=== PATIENT | female | born 1935 | race American Indian/Alaskan Native ===

== ENCOUNTER 2016-06-28 08:42 | Inpatient (IN) | payer MEDICARE ==
[2016-06-28 09:18] LABS: Basophils % (Auto) 0.9 % (0.0-1.8); Eosinophils % (Auto) 1.1 % (0.0-4.3); Hematocrit 31.5 % (30.3-42.9); Hemoglobin 10.2 gm/dl (10.1-14.3); Mean Corpuscular HGB Conc 32 % (30-34); Mean Corpuscular Hemoglobin 30 pg (28-32); Mean Corpuscular Volume 92 fl (79-97); Platelet Count 164 K/mm3 (140-440); Red Blood Count 3.42 M/mm3 (3.65-5.03); Red Cell Distribution Width 16.2 % (13.2-15.2); White Blood Count 6.6 K/mm3 (4.5-11.0)
--- NOTE | 2016-06-28 09:57 | XRay Report ---
AP CHEST: HISTORY: Shortness of breath. FINDINGS: Mild cardiomegaly, mild pulmonary venous congestion and small bilateral pleural effusions are identified. These findings have increased slightly since 11/14/15. IMPRESSION: Mild CHF.
[2016-06-28 10:10] LABS: Anion Gap 22 mmol/L; Blood Urea Nitrogen 15 mg/dL (7-17); Calcium 8.4 mg/dL (8.4-10.2); Carbon Dioxide 23 mmol/L (22-30); Chloride 103.4 mmol/L (98-107); Glucose 201 mg/dL (65-100); Sodium 144 mmol/L (137-145)
[2016-06-28 10:36] LABS: INR 1.46 (0.87-1.13); Partial Thromboplastin Time 25.2 Sec. (24.2-36.6)
[2016-06-28 10:40] LABS: Creatine Kinase MB 1.6 ng/mL (0.0-4.0)
[2016-06-28 10:48] LABS: Alanine Aminotransferase 11 units/L (7-56); Albumin 3.3 g/dL (3.9-5); Alkaline Phosphatase 95 units/L (35-129); Bilirubin,Total 0.6 mg/dL (0.1-1.2); Magnesium 1.7 mg/dL (1.7-2.3); Total Protein 6.6 g/dL (6.3-8.2)
[2016-06-28 10:52] LABS: Bilirubin,Direct < 0.2 mg/dL (0-0.2)
[2016-06-28] MEDS ORDERED: BABY ASPIRIN PO ONE (11:40)
--- NOTE | 2016-06-28 11:40 | Emergency Department Report ---
ED Shortness of Breath HPI - General Chief Complaint: Dyspnea/Respdistress Stated Complaint: SOB Time Seen by Provider: 06/28/16 09:44 Source: patient, family Mode of arrival: Wheelchair Limitations: No Limitations - History of Present Illness Initial Comments: The patient complains of generalized weakness and shortness of breath. She stated this her weight is up 299 pounds. She is a little bit unclear as to what her dry weight is. She states that she has developed increasing edema of her lower extremities. She has a history of congestive heart failure. However I do not find any history of atrial fibrillation or flutter. She is not on an anti-coagulant. [facility] She is not aware of an irregular heartbeat. She denies chest pain pressure or tightness. MD Complaint: shortness of breath -: Gradual, days(s) Consistency: intermittent Improves With: nothing Worsens With: nothing Known History Of: congestive heart failure Context: other (appears to have new onset atrial flutter) Associated Symptoms: rash (lower extremity swelling and dyspnea) - Related Data Home Medications Medication Instructions Recorded Confirmed Last Taken Lisinopril/Hydrochlorothiazide 1 tab PO QDAY 11/14/15 06/28/16 06/27/16 [Zestoretic 20-12.5 mg] Lovastatin [Altoprev] 40 mg PO QPM 11/14/15 06/28/16 06/27/16 Epoetin Geovanni 40,000 Unit [Procrit] 1 ml IM O 06/28/16 06/28/16 Unknown Previous Rx's Medication Instructions Recorded Last Taken Type Aspirin [Aspirin TAB] 325 mg PO QDAY #30 tablet 11/16/15 06/27/16 Rx Carvedilol [Coreg] 3.125 mg PO BID #60 tablet 11/16/15 Unknown Rx Furosemide [Lasix] 20 mg PO QDAY #30 tablet 11/16/15 06/27/16 Rx Pantoprazole [Protonix TAB] 40 mg PO QDAY #30 tablet 11/16/15 06/27/16 Rx glipiZIDE [Glucotrol] 10 mg PO QDAY #30 tablet 11/16/15 1 Day Ago Rx Allergies Allergy/AdvReac Type Severity Reaction Status Date / Time No Known Allergies Allergy Verified 11/14/15 08:41 ED Review of Systems ROS: Stated complaint: SOB Other details as noted in HPI Constitutional: weakness. denies: chills, fever Eyes: denies: eye pain, eye discharge, vision change ENT: denies: ear pain, throat pain Respiratory: cough (some nonproductive cough), shortness of breath. denies: wheezing Cardiovascular: denies: chest pain, palpitations Endocrine: no symptoms reported Gastrointestinal: denies: abdominal pain, nausea, diarrhea Genitourinary: denies: urgency, dysuria, discharge Musculoskeletal: other. denies: back pain, joint swelling, arthralgia Skin: denies: rash, lesions Neurological: denies: headache, weakness, paresthesias Psychiatric: denies: anxiety, depression Hematological/Lymphatic: denies: easy bleeding, easy bruising ED Past Medical Hx - Past Medical History Previous Medical History?: Yes Hx Hypertension: Yes Hx Congestive Heart Failure: Yes Hx Diabetes: Yes Hx HIV: No - Surgical History Past Surgical History?: No - Social History Smoking Status: Never Smoker Substance Use Type: None - Medications Home Medications: Home Medications Medication Instructions Recorded Confirmed Last Taken Type Lisinopril/Hydrochlorothiazide 1 tab PO QDAY 11/14/15 06/28/16 06/27/16 History [Zestoretic 20-12.5 mg] Lovastatin [Altoprev] 40 mg PO QPM 11/14/15 06/28/16 06/27/16 History Aspirin [Aspirin TAB] 325 mg PO QDAY #30 tablet 11/16/15 06/28/16 06/27/16 Rx Carvedilol [Coreg] 3.125 mg PO BID #60 tablet 11/16/15 06/28/16 Unknown Rx Furosemide [Lasix] 20 mg PO QDAY #30 tablet 11/16/15 06/28/16 06/27/16 Rx Pantoprazole [Protonix TAB] 40 mg PO QDAY #30 tablet 11/16/15 06/28/16 06/27/16 Rx glipiZIDE [Glucotrol] 10 mg PO QDAY #30 tablet 11/16/15 06/28/16 1 Day Ago Rx Epoetin Geovanni 40,000 Unit [Procrit] 1 ml IM O 06/28/16 06/28/16 Unknown History ED Physical Exam - General Limitations: No Limitations General appearance: alert, in no apparent distress - Head Head exam: Present: atraumatic, normocephalic - Eye Eye exam: Present: normal appearance. Absent: scleral icterus - ENT ENT exam: Present: mucous membranes moist - Neck Neck exam: Present: normal inspection. Absent: tenderness, meningismus - Respiratory Respiratory exam: Present: decreased breath sounds (distant breath sounds at the base). Absent: respiratory distress, accessory muscle use - Cardiovascular Cardiovascular Exam: Present: regular rate, normal rhythm. Absent: systolic murmur, diastolic murmur, rubs, gallop - GI/Abdominal GI/Abdominal exam: Present: soft, normal bowel sounds. Absent: distended, tenderness, guarding, rebound, rigid, organomegaly, mass - Extremities Exam Extremities exam: Present: other (2+ bilateral edema) - Back Exam Back exam: Present: normal inspection - Neurological Exam Neurological exam: Present: alert, oriented X3, CN II-XII intact. Absent: motor sensory deficit - Psychiatric Psychiatric exam: Present: normal affect, normal mood - Skin Skin exam: Present: warm, dry, intact, normal color. Absent: rash ED Course Vital Signs 06/28/16 06/28/16 06/28/16 08:45 08:49 09:21 Temperature 98 F 98.9 F Pulse Rate 96 H 89 Respiratory 22 16 Rate Blood Pressure 133/73 Blood Pressure 128/74 [Left] O2 Sat by Pulse 99 100 92 Oximetry 06/28/16 06/28/16 06/28/16 09:30 09:45 10:01 Temperature Pulse Rate 93 H 73 Respiratory 18 18 20 Rate Blood Pressure 127/82 134/70 Blood Pressure [Left] O2 Sat by Pulse 96 Oximetry - Reevaluation(s) Reevaluation #1: The patient did not require rate control. She is given aspirin. She was given a prophylactic dose of subcutaneous Lovenox. She was given Lasix. Discussed the case with Dr. Browne who is a hospitalist that we'll be admitting her. [facility]. 06/28/16 11:56 ED Medical Decision Making - Lab Data Result diagrams: 06/28/16 09:05 06/28/16 09:05 Laboratory Results - last 24 hr 06/28/16 06/28/16 06/28/16 09:05 09:05 10:00 WBC 6.6 RBC 3.42 L Hgb 10.2 Hct 31.5 MCV 92 MCH 30 MCHC 32 RDW 16.2 H Plt Count 164 Lymph % (Auto) 34.7 [place] % (Auto) 9.6 H Eos % (Auto) 1.1 Baso % (Auto) 0.9 Lymph # 2.3 [place] # 0.6 Eos # 0.1 Baso # 0.1 Seg Neutrophils % 53.7 Seg Neutrophils # 3.5 PT 17.7 H INR 1.46 H APTT 25.2 Sodium 144 Potassium 4.0 Chloride 103.4 Carbon Dioxide 23 Anion Gap 22 BUN 15 Creatinine 1.0 Estimated GFR > 60 BUN/Creatinine Ratio 15.00 Glucose 201 H Calcium 8.4 Magnesium Total Bilirubin Direct Bilirubin AST ALT Alkaline Phosphatase Total Creatine Kinase CK-MB (CK-2) CK-MB (CK-2) Rel Index Troponin T < 0.010 NT-Pro-B Natriuret Pep Total Protein Albumin Albumin/Globulin Ratio TSH Free T4 06/28/16 06/28/16 06/28/16 10:01 10:01 10:01 WBC RBC Hgb Hct MCV MCH MCHC RDW Plt Count Lymph % (Auto) [place] % (Auto) Eos % (Auto) Baso % (Auto) Lymph # [place] # Eos # Baso # Seg Neutrophils % Seg Neutrophils # PT INR APTT Sodium Potassium Chloride Carbon Dioxide Anion Gap BUN Creatinine Estimated GFR BUN/Creatinine Ratio Glucose Calcium Magnesium 1.7 Total Bilirubin 0.6 Direct Bilirubin < 0.2 AST 19 ALT 11 Alkaline Phosphatase 95 Total Creatine Kinase 52 CK-MB (CK-2) 1.6 CK-MB (CK-2) Rel Index 3.0 Troponin T NT-Pro-B Natriuret Pep 3037 H Total Protein 6.6 Albumin 3.3 L Albumin/Globulin Ratio 1.0 TSH 1.960 Free T4 1.10 - EKG Data -: EKG Interpreted by Me Rate: normal - EKG Data Interpretation: other (atrial flutter with variable block. Left axis deviation. Intraventricular conduction delay. Nonspecific ST-T wave changes.) - Radiology Data Radiology results: report reviewed interpreted by me: Asked x-ray consistent with CHF cardiomegaly, venous congestion, pleural effusions. Critical care attestation.: If time is entered above; I have spent that time in minutes in the direct care of this critically ill patient, excluding procedure time. ED Disposition Clinical Impression: Atrial flutter Qualifiers: Atrial flutter type: unspecified Qualified Code(s): I48.92 - Unspecified atrial flutter Congestive heart failure (CHF) Qualifiers: Congestive heart failure type: combined Congestive heart failure chronicity: acute on chronic Qualified Code(s): I50.43 - Acute on chronic combined systolic (congestive) and diastolic (congestive) heart failure Type 2 diabetes mellitus Qualifiers: Diabetes mellitus complication status: with other specified complication Diabetes mellitus ad terminal makeup operator insulin use: without longterm use Qualified Code(s) : E11.69 - Type 2 diabetes mellitus with other specified complication Disposition: OP ADMITTED IP TO THIS HOSP Is pt being admited?: Yes Does the pt Need Aspirin: Yes Condition: Stable Instructions: Diabetes Mellitus Type 2 in Adults (ED) Referrals: PRIMARY CARE, [Primary Care Provider] - 3-5 Days Time of Disposition: 11:40
[2016-06-28] MEDS ORDERED: LASIX IV ONE (11:47)
[2016-06-28] MEDS ORDERED: LOVENOX SUB-Q SCH (12:00)
--- NOTE | 2016-06-28 12:56 | Admit Criteria Form ---
Admission Criteria Documentation: HEART FAILURE Clinical Indications for Admission to Inpatient Care (Place 'X' for any and all applicable criteria): Admission is indicated by ANY ONE of the following(1)(2)(3)(4): [ ]I. Severe electrolyte abnormalities requiring inpatient care(9) [ ]II. Hemodynamic instability [X]III. Anasarca [ ]IV. Acute cardiac ischemia causing or associated with failure (Also use Angina or Myocardial Infarction as appropriate) [X]V. Cardiac arrhythmias of immediate concern [ ]. Precipitating cause for acute decompensation (eg, pneumonia, pulmonary embolism) requires inpatient care [ ]VII. Pulmonary edema that is very severe (eg, mechanical ventilation needed, imminent or likely, need for 100% oxygen to keep oxygen saturation above 90%) [ ]VIII. Inpatient admission required rather than observation care (Also use Heart Failure: Observation Care as appropriate) because of ANY ONE of the following: [ ]a) Pulmonary edema that is severe or worsening as indicated by ALL of the following: [ ]i) New need for oxygen therapy to keep oxygen saturation above 90% (or increased FiO2 need from baseline) [ ]ii) Has not improved sufficiently with emergency department or observation care IV diuretics or other heart failure treatments[C] [ ]b) Cognitive impairment that is severe or persistent [ ]c) Increased creatinine (new on laboratory test) with reduction of more than 50% in estimated glomerular filtration rate from baseline. [ ]d) Acute renal insufficiency (progressively (ongoing) rising creatinine (known from past laboratory test) with reduction of more than 25% in estimated glomerular filtration rate from baseline) [ ]e) Acute peripheral ischemia (eg, pulseless, cool, mottled, or cyanotic extremity) [ ]f) Acute renal failure [ ]g) Supplemental O2 or respiratory treatment for >24 hr that are performable only in acute inpatient setting [ ]h) Pulmonary artery catheter monitoring [ ]i) Other condition, treatment or monitoring requiring inpatient admission [X]IX. Contraindications and/or Inappropriate clinical situations for Observational Care in patients with Heart Failure, when ANY ONE of the following is required: [ ]a) Patient with High risk of cardiac embolism (e.g, patients with previous cardiac embolism, LVEF < 40%, age >75 and patients with prosthetic valve) 18 [X ]b) Patient with Moderate risk including DM patient, CAD and patient aged 65-75 [ ]c) Patient with any change in cardiac biomarker especially troponin should be managed as high risk in an inpatient setting 19 [ ]d) Physician judgement irrespective of ECG and other diagnostic findings 20 [ ]e) Patients with hyponatremia have high risk for mortality and require more extensive care and length of stay 21 [ ]f) Need for large volume diuresis 21 [ ]g) Presence of renal insufficiency or hypotension limiting speed of diuresis 21 [ ]h) Acute cardiac Ischemia in the elderly 21 [ ]i) Patients with a 30 day risk of mortality based on a multidimensional prognostic index (MPI) [J,]21 [ ]X. General contraindications and/or Inappropriate clinical situations for Observational Care in patients with Heart Failure, when ANY ONE of the following is required: [ ]a) Prediction of prolongation of LOS based on ANY ONE of the following may be considered as a contraindication for observational care 2, 3, 4, 5, 6, 7, 8 , 9, 10, 11 [ ]i) Age > 65 yrs. [ ]ii) Patient arriving by ambulance [ ]iii) Patient with high acuity [ ]iv) Patient requiring vital sign monitoring [ ]v) Patient on IV medication [ ]b) Systolic blood pressures 180mmHg 3,12 [ ]c) Patient with altered mental status including delirium and other alteration of consciousness, (3) [ ]d) Patient whose discharge disposition will be to a half-way home or rehabilitation home should not be managed in Emergency Department Observation Unit. CMS rule requires 3 days hospital stay before such placement.3,13 [ ]e) Patient with failure to thrive due to broad array of etiologies 3,16,17 [ ]f) Inability to ambulate 3,14 Extended stay beyond goal length of stay may be needed for(1)(3)(21)(25): [ ]a) Cardiac ischemia, confirmed or suspected as precipitant [ ]b) Cardiogenic shock or refractory pulmonary edema [ ]c) Acute kidney injury or renal failure [ ]d) Respiratory failure (eg, need for noninvasive or invasive mechanical ventilation) (23) [ ]e) Concomitant pneumonia or significant electrolyte abnormality (eg, severe hyponatremia) [ ]f) Newly diagnosed (new onset) atrial fibrillation [ ]g) Stage IV chronic kidney disease (estimated glomerular filtration rate of less than 30 mL/min/1.73m2 (0.50 mL/sec/1.73m2), and not previously on chronic dialysis The original [facility] content created by [facility] has been revised. The portions of the content which have been revised are identified through the use of italic text or in bold, and [facility] has neither reviewed nor approved the modified material. All other unmodified content is copyright [facility]. Please see references footnoted in the original [facility] edition 2016 Admission Criteria Met: Yes
--- NOTE | 2016-06-28 13:58 | Event Note ---
Date: 06/28/16 See H/p in reports
[2016-06-28] MEDS ORDERED: ASPIRIN PO SCH (14:00)
[2016-06-28] MEDS ORDERED: NON-FORMULARY (Lisinopril/Hydrochlorothiazide [Zestoretic 20-12.5 Mg] 1 TAB) PO SCH (14:00)
--- NOTE | 2016-06-28 14:38 | Consultation ---
Addendum entered and electronically signed by TIERNEY BROWN MD 06/28/16 19:28 : 80y F with hypertension and diabetes. 6 months ago she presented with heart failure/interstitial lung edema. Echo was normal EF 50-55% and Pers thallium normal. She returns to ER with SOB and CXR shows recurrent CHF with small bilateral pleural effusions. In addition, her ECG now is atrial fibrillation, duration uncertain. It will be noted that on her last visit six months ago she was a stable NSR. Recommendations: Diuretics, rate control of Afib, oral antiplatelets. She will benefit from invasive evaluation for recurrent CHF and multiple risk factors including DM. Ultimately before discharge will need to be started on buttermaker helper oral anticoagulation. Original Note: History of Present Illness Consult date: 06/28/16 Consult reason: atrial fibrillation History of present illness: Patient is a 80yr old woman who presented to this hospital with complaints of shortness of breath. Patient reports shortness of breath has been ongoing for 2wks now with minimal exertion. Associated lower extremity edema. She denies chest pain and palpitations. An ECG done in the ED shows atrial fibrillation with a controlled ventricular rate. Atrial fibrillation appears to be new onset. Prior ECG done 6 months ago shows a sinus rhythm with PACs. Patient denies history of arrhythmias. Cardiac consultation requested. Patient is known to [facility]. She has a history of CHF with a preserved ejection fraction. Her most recent cardiac workup was done 6 months ago. She had a normal myocardial perfusion stress thallium. An echo showed a normal LVEF 50-55%. Medications and Allergies Allergies Allergy/AdvReac Type Severity Reaction Status Date / Time No Known Allergies Allergy Verified 11/14/15 08:41 Home Medications Medication Instructions Recorded Confirmed Last Taken Type Lovastatin [Altoprev] 40 mg PO QPM 11/14/15 06/28/16 06/27/16 History Aspirin [Aspirin TAB] 325 mg PO QDAY #30 tablet 11/16/15 06/28/16 06/27/16 Rx Furosemide [Lasix] 20 mg PO QDAY #30 tablet 11/16/15 06/28/16 06/27/16 Rx Pantoprazole [Protonix TAB] 40 mg PO QDAY #30 tablet 11/16/15 06/28/16 06/27/16 Rx glipiZIDE [Glucotrol] 10 mg PO QDAY #30 tablet 11/16/15 06/28/16 1 Day Ago Rx Epoetin Geovanni 40,000 Unit [Procrit] 1 ml IM O 06/28/16 06/28/16 Unknown History Active Meds: Active Medications Aspirin (Aspirin) 325 mg PO QDAY [facility] Carvedilol (Coreg) 3.125 mg PO BID [facility] Enoxaparin Sodium (Lovenox) 40 mg SUB-Q QDAY [facility] Last Admin: 06/28/16 12:26 Dose: 40 mg Furosemide (Lasix) 40 mg IV 0600,1800 [facility] Glipizide (Glucotrol) 10 mg PO QDAY [facility] Hydrochlorothiazide (Hctz) 12.5 mg PO QDAY [facility] Insulin Aspart (Novolog) 0 units SUB-Q ACHS [facility] PRN Reason: Protocol Lisinopril (Zestril) 40 mg PO QDAY [facility] Pantoprazole Sodium (Protonix) 40 mg PO QDAY [facility] Potassium Chloride (K-Dur) 20 meq PO Q12H [facility] Simvastatin (Zocor) 20 mg PO QHS [facility] Physical Examination Vital Signs Temp Pulse Resp BP Pulse Ox 98 F 96 H 22 133/73 99 06/28/16 08:45 06/28/16 08:45 06/28/16 08:45 06/28/16 08:45 06/28/16 08:45 General appearance: no acute distress HEENT: Positive: PERRL Neck: Positive: trachea midline Cardiac: Positive: irregularly irregular Lungs: Positive: Decreased Breath Sounds Neuro: Positive: Grossly Intact Extremities: Present: edema Results 06/28/16 09:05 06/28/16 09:05 EKG interpretations - Telemetry EKG Rhythm: Atrial Fibrillation Assessment and Plan CHF, diastolic preserved EF 50-55% on echo 11/2015 normal MPI 11/2015 Atrial fibrillation, new onset controlled ventricular rate Diabetes mellitus
[2016-06-28] MEDS ORDERED: HCTZ PO SCH (15:00)
[2016-06-28] MEDS: COREG PO SCH ×2 (16:39→22:56)
[2016-06-28] MEDS: ZESTRIL PO SCH (16:40)
[2016-06-28] MEDS: LASIX IV SCH (17:07)
[2016-06-28] MEDS: GLUCOTROL PO SCH (17:07)
[2016-06-28] MEDS: PROTONIX PO SCH (17:07)
[2016-06-28] MEDS: K-DUR PO SCH (17:08)
[2016-06-28] MEDS: NOVOLOG SUB-Q SCH ×2 (17:08→22:57)
[2016-06-28] MEDS ORDERED: NON-FORMULARY (Lovastatin [Altoprev] 40 MG) PO SCH (18:00)
[2016-06-28] MEDS ORDERED: TYLENOL PO PRN (19:48)
[2016-06-28] MEDS ORDERED: NACL 0.9% 500 ML 500 ML IV SCH (20:00)
[2016-06-28] MEDS ORDERED: MAGNESIUM SULFATE 2GM/50ML 50 ML IV ONE (20:00)
[2016-06-28] MEDS ORDERED: ZOCOR PO SCH (22:00)
[2016-06-28] MEDS ORDERED: HEPARIN SUB-Q SCH (22:00)
[2016-06-29] MEDS: K-DUR PO SCH ×2 (03:36→16:52)
[2016-06-29] MEDS: LASIX IV SCH (05:37)
[2016-06-29] MEDS ORDERED: NACL 0.9% 500 ML IV ONE (06:00)
[2016-06-29] MEDS ORDERED: ASPIRIN PO ONE (06:00)
[2016-06-29] MEDS ORDERED: NACL 0.9% 500 ML 500 ML IV SCH (06:00)
[2016-06-29] MEDS ORDERED: HEPARIN/NS 5000 UNIT/500ML(CATH LAB) 1,000 ML IR ONE (08:05)
[2016-06-29] MEDS ORDERED: HEPARIN 10,000 UNITS/10 ML ONE (08:05)
[2016-06-29] MEDS: XYLOCAINE 2% INFILTRATI ONE ×2 (08:23→08:33)
[2016-06-29] MEDS: VERSED ONE ×2 (08:24→08:33)
[2016-06-29] MEDS: SUBLIMAZE ONE ×2 (08:24→08:33)
--- NOTE | 2016-06-29 09:06 | History and Physical Report ---
CHIEF COMPLAINT: Palpitations and shortness of breath. HISTORY OF PRESENT ILLNESS: This is a 80-year-old woman presents with shortness of breath and palpitation for the last 2 weeks. Shortness of breath with minimal exertion. No chest pain. No diaphoresis. Occasional palpitations. In the ED, the patient was found to be in the atrial fibrillation with controlled ventricular rate and atrial fibrillation, new onset. She has history of CHF with preserved ejection fraction. She has diastolic dysfunction with the ejection fraction of 50-55%. PAST MEDICAL HISTORY: Significant for, 1. Hypertension. 2. CHF. 3. Type 2 diabetes. 4. Gastroesophageal reflux disease. 5. Hyperlipidemia. CURRENT MEDICATIONS: Aspirin 325 mg once a day, Coreg 3.125 b.i.d., Lasix 20 mg daily, Protonix 40 mg daily, glipizide 10 mg daily, epoetin 40,000 units q. monthly. PAST SURGICAL HISTORY: None. SOCIAL HISTORY: Does not smoke. No alcohol, no recreational drugs. FAMILY HISTORY: Significant for hypertension. REVIEW OF SYSTEMS: CONSTITUTIONAL: No fever, no chills, no weight loss, no weight gain. HEENT: No sore throat, no postnasal drip. CARDIOVASCULAR AND RESPIRATORY: Shortness of breath on exertion present. No cough, no sputum production. Palpitations occasionally. No diaphoresis. GASTROINTESTINAL: No nausea, no vomiting, no diarrhea. GENITOURINARY: No dysuria, no flank pain. MUSCULOSKELETAL: No joint pains. No muscle pains. CENTRAL NERVOUS SYSTEM: No syncope, no seizures. A 14-point review of systems was done, negative. PHYSICAL EXAMINATION: GENERAL: Elderly female, lying in bed, comfortable. VITAL SIGNS: Temperature is 98, pulse is 96 and irregular, respiratory rate is 22, blood pressure is 133/72. HEENT: Unremarkable. Pupils equal and reactive. NECK: Supple, no lymphadenopathy, no thyromegaly. LUNGS: Clear to auscultation and percussion. Good air entry. CARDIOVASCULAR: S1, S2 heard, irregular heart rate. No murmur. ABDOMEN: Soft and benign. No hepatosplenomegaly. No guarding, no rigidity. Hernial orifices are normal. EXTREMITIES: Good pedal pulses. No pedal edema. CENTRAL NERVOUS SYSTEM: Alert and oriented x 4, nonfocal exam. SKIN: Normal. LABORATORY DATA: Significant for glucose of 201, H and H of 10.2 and 31.5, otherwise normal labs. DIAGNOSTIC DATA: EKG shows atrial fibrillation with heart rate of 100. Also, atrial flutter with variable block. Chest x-ray shows CHF, pulmonary venous congestion, and mild pleural effusions. ASSESSMENT AND PLAN: 1. Atrial fibrillation/atrial flutter. We will defer to cardiology whether to start on Cardizem and anticoagulation at this point. [facility] consulted. The patient belongs to the [facility]. 2. Hypertension. Continue lisinopril 40 mg daily. 3. Hyperlipidemia. Continue simvastatin 20 mg p.o. daily. 4. Type 2 diabetes mellitus. Continue glipizide and coverage. 5. Deep venous thrombosis prophylaxis, Lovenox 40 mg subcutaneous daily. In summary, the patient has new onset atrial flutter with fibrillation. We will defer to Cardiology regarding Cardizem and anticoagulation, whether the patient needs to be on Eliquis. JOB# [id number] FREDDY/GOLDEN
--- NOTE | 2016-06-29 09:19 | Progress Note ---
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 Elevated left and right sided filling pressures Mild pulmonary venous hypertension Preserved cardiac output Atrial fibrillation, new onset controlled ventricular rate Diabetes mellitus Recommendations: Diuresis Afterload reduction Anticoagulation for atrial fibrillation Follow-up in the office in 1 week Subjective Date of service: 06/29/16 Principal diagnosis: CHF Interval history: Patient underwent a LHC and RHC today without complications Objective Vital Signs Temp Pulse Pulse Pulse Resp Resp BP 06/29/16 08:23 98.2 F 67 18 06/29/16 04:30 97.6 F 68 20 06/29/16 01:39 98.3 F 89 20 06/29/16 01:05 06/28/16 21:06 20 06/28/16 20:10 98.0 F 120 H 20 06/28/16 20:07 20 06/28/16 20:06 20 06/28/16 19:57 92 H 22 06/28/16 19:11 99 H 06/28/16 17:02 98.3 F 92 H 20 06/28/16 13:21 06/28/16 12:28 78 06/28/16 12:27 98 F 80 16 06/28/16 12:15 76 23 122/64 06/28/16 12:00 62 14 133/72 BP BP BP Pulse Ox 06/29/16 08:23 111/68 100 06/29/16 04:30 100 06/29/16 01:39 96/59 99 06/29/16 01:05 98 06/28/16 21:06 06/28/16 20:10 108/64 100 06/28/16 20:07 06/28/16 20:06 06/28/16 19:57 96 06/28/16 19:11 06/28/16 17:02 123/73 97 06/28/16 13:21 97 06/28/16 12:28 06/28/16 12:27 122/78 100 06/28/16 12:15 06/28/16 12:00 - Physical Examination HEENT: Positive: PERRL Neck: Positive: trachea midline Cardiac: Positive: irregularly irregular Lungs: Positive: Normal Exam Neuro: Positive: Grossly Intact Extremities: Present: edema
[2016-06-29] MEDS ORDERED: ASPIRIN PO SCH (09:20)
[2016-06-29] MEDS ORDERED: BABY ASPIRIN PO SCH (10:00)
--- NOTE | 2016-06-29 10:27 | Cardiac Catherization Report ---
INDICATION FOR PROCEDURE: Congestive heart failure, shortness of breath. ORDERING PHYSICIAN: Dr. Sebastien Panda. PROCEDURES PERFORMED: 1. Selective left and right coronary angiography. 2. Left ventriculography. 3. Right heart catheterization with hemodynamic measurement and oxygen saturation run. DESCRIPTION OF PROCEDURE: After obtaining written consent, the patient was draped using sterile technique. A 2% lidocaine was injected into the right groin. Using micropuncture technique, a 5-Norwegian vascular sheath was inserted into the right common femoral artery. Using micropuncture technique, a 7-Norwegian vascular sheath was inserted into the right common femoral vein. A 5-Norwegian JL5 catheter was used to selectively engage the left coronary artery. A 5-Norwegian JR4 catheter was used to selectively engage the right coronary artery. A 5-Norwegian JR4 catheter was used to hand inject the left ventriculogram. A 7-Norwegian Florence-Kimber catheter was used to measure right-sided hemodynamics and perform oxygen saturation run. No complications occurred during the procedure. Hemostasis was achieved at the end of the procedure using a 6-Norwegian Angio-Seal device. SPECIMEN REMOVED: None. ESTIMATED BLOOD LOSS: Minimal. FINDINGS: HEMODYNAMICS: 1. The left ventricular systolic pressure was 103 mmHg with a left ventricular end-diastolic pressure of 27 mmHg. The aortic pressure was 106/57. There was no significant gradient noted across the left ventricular outflow tract. 2. The mean pulmonary capillary wedge pressure was 29 mmHg. 3. The mean pulmonary artery pressure was 34 mmHg with a pulmonary artery systolic pressure of 49 and the diastolic pressure of 24 mmHg. 4. The right ventricular systolic pressure was 49 mmHg with a right ventricular end-diastolic pressure of 23 mmHg. 5. The mean right arterial pressure was 22 mmHg. 6. The pulmonary artery saturation was 58%, right ventricular saturation 56%, right atrial saturation 58% and SVC saturation was 60%. The aortic saturation was 97%. 7. The cardiac output was 4.84 with a cardiac index of 2.436 L per minute per m sq. CARDIAC STRUCTURES: The left ventricle is normal in size with mild global left ventricular hypokinesis and left ventricular ejection fraction is estimated between 45% to 50%. CORONARY ANATOMY: 1. This is a right dominant circulation. 2. The left main is angiographically normal. 3. The left anterior descending artery has less than or equal to 25% luminal irregularities. 4. The left circumflex artery has less than or equal to 25% luminal irregularities. 5. The right coronary artery has less than or equal to 25% luminal irregularities. IMPRESSION: 1. Nonobstructive minimal coronary artery disease. 2. Mild global left ventricular hypokinesis with an ejection fraction estimated between 45% and 60%. 3. Evidence of elevated left and right-sided filling pressures. 4. Evidence of mild pulmonary venous hypertension. 5. Preserved cardiac output. 6. No evidence of an intracardiac shunt. RECOMMENDATIONS: Continue current medical therapy and risk factor modification including diuresis and afterload reduction. JOB# [id number] SINDHU/GOLDEN
--- NOTE | 2016-06-29 10:38 | Discharge Summary ---
Providers - Providers Date of Admission: 06/28/16 11:52 Date of discharge: 06/29/16 Attending physician: EMMA VEGA 06/29/16 09:19 Consult to Cardiac Rehabilitation [CONS] Routine Reason For Exam: Cardiac Rehab Evaluation Primary care physician: SUPPORT STAFF Hospitalization Reason for admission: chest pain and shortness of breath Condition: Stable Pertinent studies: Left heart Catheterization Hospital course: Final diagnosis; Acute on chronic Diastolic congestive heart failure Chest pain/nonobstructive coronary artery disease by left heart Atrial fibrillation Type 2 diabetes mellitus Anticoagulation for A. fib dyslipidemia Hypertension She was admitted through emergency room with chest pain and shortness of breath Evaluated by cardiology, symptomatically managed, heart Nonobstructive coronary artery disease Patient has atrial fibrillation rate controlled new onset, started on anticoagulation Today patient is comfortable in bed alert awake oriented 3 not in acute distress Vital signs stable [id number] evaluation and physical examination did not show any new changes Cleared by cardiology for discharge and follow up with him in the office Patient's condition treatment and discharge plan discussed in detail with the patient family members and the nurse Consults and recommendations noted and appreciated Disposition: DISCHARGED TO HOME OR SELFCARE Time spent for discharge: 32 min Core Measure Documentation - Palliative Care Palliative Care/ Comfort Measures: Not Applicable - Core Measures Any of the following diagnoses?: none Exam - Constitutional Vitals: Temp Pulse Resp BP Pulse Ox 98.2 F 67 18 111/68 100 06/29/16 08:23 06/29/16 08:23 06/29/16 08:23 06/29/16 08:23 06/29/16 08:23 General appearance: Present: no acute distress, well-nourished - EENT Eyes: Present: PERRL, EOM intact - Neck Neck: Present: supple, normal ROM - Respiratory Respiratory effort: normal Respiratory: negative: rales, rhonchi, wheezing - Cardiovascular Rhythm: regular Heart Sounds: Present: S1 & S2 - Extremities Extremities: no ischemia, pulses intact, pulses symmetrical - Abdominal General gastrointestinal: Present: soft, non-tender, non-distended, normal bowel sounds - Integumentary Integumentary: Present: clear, warm - Musculoskeletal Musculoskeletal: strength equal bilaterally - Psychiatric Psychiatric: appropriate mood/affect, cooperative - Neurologic Neurologic: CNII-XII intact, moves all extremities Plan Activity: no restrictions Diet: diabetic, other (cardiac diet) Follow up with: PRIMARY CARE, [Primary Care Provider] - 3-5 Days EDGARDO BALLESTEROS MD [Staff Physician] - 7 Days Prescriptions: Apixaban [Eliquis] 5 mg PO Q12HR #60 tablet Carvedilol [Coreg] 3.125 mg PO BID #60 tablet Lisinopril [Zestril TAB] 40 mg PO QDAY #30 tablet
[2016-06-29] MEDS: NOVOLOG SUB-Q SCH ×2 (11:39→18:52)
[2016-06-29] MEDS: ZESTRIL PO SCH (11:40)
[2016-06-29] MEDS: COREG PO SCH (13:51)
[2016-06-29] MEDS: GLUCOTROL PO SCH (13:51)
[2016-06-29] MEDS: PROTONIX PO SCH (13:51)
[2016-06-29 17:52] VITALS: BP 116/81
[2016-06-29] MEDS ORDERED: ELIQUIS PO SCH (22:00)
== END 2016-06-29 20:12 | disposition home or self-care (01) | DRG 286 ==
LOC: ED 08:42 → 4A 11:52
PROVIDERS: ADMIT Internal Medicine; ATTEND Internal Medicine
PROC: 4A023N8 Measurement of Cardiac Sampling and Pressure, Bilateral, Percutaneous Approach (ICD-10-PCS; principal; 2016-06-29)
PROC: B2111ZZ Fluoroscopy of Multiple Coronary Arteries using Low Osmolar Contrast (ICD-10-PCS; 2016-06-29)
PROC: B2151ZZ Fluoroscopy of Left Heart using Low Osmolar Contrast (ICD-10-PCS; 2016-06-29)
DX: I48.91 Unspecified atrial fibrillation (principal); I50.33 Acute on chronic diastolic (congestive) heart failure; I11.0 Hypertensive heart disease with heart failure; I48.92 Unspecified atrial flutter; E11.69 Type 2 diabetes mellitus with other specified complication; K21.9 Gastro-esophageal reflux disease without esophagitis; E78.5 Hyperlipidemia, unspecified; Z82.49 Family history of ischemic heart disease and other diseases of the circulatory system; Z79.899 Other long term (current) drug therapy; Z79.82 Long term (current) use of aspirin
CPT/HCPCS: 36415; 71010; 80048; 80074; 82550; 82553; 82962; 83036; 83735; 83880; 84439; 84443; 84484; 85025; 85610; 85730; 93005; 93010; 93460; 96372; 96374; C1760; J1644; J1650; J1815; J1940; J2250; J3010; J3475; J7040; Q9967

== ENCOUNTER 2018-06-08 12:49 | Inpatient (IN) | payer MEDICARE ==
[2018-06-08] MEDS ORDERED: D50W (25GM) Syringe IV ONE (13:11)
--- NOTE | 2018-06-08 13:17 | Emergency Department Report ---
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 Patient presented to the ER via EMS after patient was found unresponsive. EMS stated that patient initial blood glucose was 25. Patient received dextrose 50 and patient immediately start wake up. Patient with a slurred speech which is chronic secondary to her previous stroke. Patient now is alert oriented. Patient blood sugar dropped to 69 again in the emergency room and she was given another dextrose 50. - Related Data Home Medications Medication Instructions Recorded Confirmed Last Taken Furosemide [Lasix TAB] 40 mg PO QDAY 11/20/17 06/08/18 Unknown Sitagliptin Phosphate [Januvia] 50 mg PO QDAY 11/20/17 06/08/18 Unknown Apixaban [Eliquis] 5 mg PO BID 05/06/18 06/08/18 Unknown Digoxin [Digox] 125 mcg PO Q2D 05/06/18 06/08/18 Unknown Lisinopril [Zestril TAB] 5 mg PO QDAY 05/06/18 06/08/18 Unknown Pravastatin [Pravachol] 80 mg PO QHS 05/06/18 06/08/18 Unknown tiZANidine [Zanaflex] 4 mg PO HS 05/06/18 06/08/18 Unknown Previous Rx's Medication Instructions Recorded Last Taken Type glipiZIDE [Glucotrol] 10 mg PO QDAY #30 tablet 11/16/15 1 Day Ago Rx ~06/27/16 Aspirin 81 mg PO DAILY #30 tab.chew 05/09/18 Unknown Rx Allergies Allergy/AdvReac Type Severity Reaction Status Date / Time No Known Allergies Allergy Verified 05/06/18 11:34 ED Review of Systems ROS: Stated complaint: LOW BLOOD SUGAR Other details as noted in HPI Comment: All other systems reviewed and negative Constitutional: denies: chills, fever Respiratory: denies: cough, orthopnea, shortness of breath, SOB with exertion, SOB at rest, wheezing Cardiovascular: denies: chest pain, palpitations, dyspnea on exertion, orthopnea Gastrointestinal: denies: abdominal pain, nausea, vomiting, diarrhea, constipation, hematemesis, melena, hematochezia Skin: denies: rash Neurological: weakness (chronic) ED Past Medical Hx - Past Medical History Hx Hypertension: Yes Hx CVA: Yes Hx Heart Attack/AMI: No Hx Congestive Heart Failure: Yes Hx Diabetes: Yes Hx Deep Vein Thrombosis: No Hx GERD: Yes Hx Liver Disease: No Hx Sickle Cell Disease: No Hx Arthritis: Yes Hx HIV: No Additional medical history: Atrial fibrillation - Surgical History Hx Coronary Stent: Yes Hx Pacemaker: No Hx Internal Defibrillator: No Additional Surgical History: "BLOOD IN HEAD REMOVED" - Social History Smoking Status: Unknown if ever smoked - Medications Home Medications: Home Medications Medication Instructions Recorded Confirmed Last Taken Type glipiZIDE [Glucotrol] 10 mg PO QDAY #30 tablet 11/16/15 06/08/18 1 Day Ago Rx ~06/27/16 Furosemide [Lasix TAB] 40 mg PO QDAY 11/20/17 06/08/18 Unknown History Sitagliptin Phosphate [Januvia] 50 mg PO QDAY 11/20/17 06/08/18 Unknown History Apixaban [Eliquis] 5 mg PO BID 05/06/18 06/08/18 Unknown History Digoxin [Digox] 125 mcg PO Q2D 05/06/18 06/08/18 Unknown History Lisinopril [Zestril TAB] 5 mg PO QDAY 05/06/18 06/08/18 Unknown History Pravastatin [Pravachol] 80 mg PO QHS 05/06/18 06/08/18 Unknown History tiZANidine [Zanaflex] 4 mg PO HS 05/06/18 06/08/18 Unknown History Aspirin 81 mg PO DAILY #30 tab.chew 05/09/18 06/08/18 Unknown Rx ED Physical Exam - General Limitations: Physical Limitation General appearance: alert, in no apparent distress - Head Head exam: Present: atraumatic, normocephalic, normal inspection - Eye Eye exam: Present: normal appearance - ENT ENT exam: Present: normal exam, normal orophraynx, mucous membranes moist - Neck Neck exam: Present: normal inspection, full ROM. Absent: tenderness, meningismus, lymphadenopathy, thyromegaly - Respiratory Respiratory exam: Present: normal lung sounds bilaterally - Cardiovascular Cardiovascular Exam: Present: regular rate, normal rhythm, normal heart sounds - GI/Abdominal GI/Abdominal exam: Present: soft, normal bowel sounds. Absent: distended, tenderness, guarding, rebound, rigid - Extremities Exam Extremities exam: Present: normal inspection, full ROM, normal capillary refill. Absent: calf tenderness - Back Exam Back exam: Present: normal inspection, full ROM. Absent: tenderness, CVA tenderness (R), CVA tenderness (L), muscle spasm, paraspinal tenderness, vertebral tenderness - Neurological Exam Neurological exam: Present: alert, oriented X3, motor sensory deficit (right- sided weakness, chronic) - Skin Skin exam: Present: warm, intact ED Course Vital Signs 06/08/18 06/08/18 13:26 13:27 Temperature 97.5 F L Pulse Rate 61 Respiratory 22 22 Rate Blood Pressure 117/62 [Left] O2 Sat by Pulse 99 99 Oximetry ED Medical Decision Making - Lab Data Result diagrams: 06/08/18 13:06 06/08/18 13:06 - EKG Data -: EKG Interpreted by Me Rate: normal - EKG Data Interpretation: no acute changes 06/08/18 14:47 Atrial fibrillation - Radiology Data Radiology results: report reviewed Referring Physician: BLAINE PARSONS Patient Name: CHRISTINA KRISHNAN Date of : 1935 Sex: Female Report Date: 2018-06-08 Report Status: Finalized Findings [address] [address] XRay Report Signed Patient: CHRISTINA KRISHNAN MR#: [id number] : 1935 Acct:[id number] Age/Sex: 82 / F ADM Date: 06/08/18 Loc: ED Attending Dr: Ordering Physician: BLAINE PARSONS Date of Service: 06/08/18 Procedure(s): XR chest 1V ap Accession Number(s): [id number] cc: BLAINE PARSONS Fluoro Time In Minutes: FINAL REPORT EXAM: XR CHEST 1V AP HISTORY: chest pain COMPARISON: None. TECHNIQUE: Single frontal view of the chest FINDINGS: There is mild cardiomegaly. Scattered hazy nodular opacities throughout both lungs, with more focal opacity in the right lower lobe. No pleural effusion or pneumothorax. No acute bony or soft tissue abnormality. IMPRESSION: Scattered hazy nodular opacities throughout both lungs, with more focal opacity in the right lower lobe concerning for infection or inflammatory change. Mild cardiomegaly. Transcribed By: OLAF Dictated By: JOSÉ LUIS GUILLAUME MD Electronically Authenticated By: JOSÉ LUIS GUILLAUME MD Signed Date/Time: 06/08/18 1430 Referring Physician: BLAINE PARSONS Patient Name: CHRISTINA KRISHNAN Date of : 1935 Sex: Female Report Date: 2018-06-08 Report Status: Finalized Findings [facility] [address] [place] [address] Cat Scan Report Signed Patient: CHRISTINA KRISHNAN MR#: [id number] : 1935 Acct:[id number] Age/Sex: 82 / F ADM Date: 06/08/18 Loc: ED Attending Dr: Ordering Physician: BLAINE PARSONS Date of Service: 06/08/18 Procedure(s): CT head/brain wo con Accession Number(s): [id number] cc: BLAINE PARSONS FINAL REPORT EXAM: CT HEAD/BRAIN WO CON HISTORY: AMS COMPARISON: CT of the abdomen pelvis performed on 05/06/2018 TECHNIQUE: Multiple contiguous axial images were obtained from the skullbase to the vertex without administration of IV contrast. FINDINGS: There age related cerebral cortical atrophy. There is no parenchymal hemorrhage or extra-axial fluid collection. Unchanged 1.2 centimeter hyper attenuating mass in the right temporal fossa. There is no acute territorial infarct. There is an old lacunar infarct in the left internal capsule. There are scattered areas of decreased attenuation in the subcortical and periventricular white matter, likely due to chronic microvascular ischemic disease. The ventricles are midline. The subarachnoid spaces and basilar cisterns are clear. There is no skull fracture. Again seen is opacification of the left maxillary sinus. Postsurgical changes from prior right craniotomy. IMPRESSION: No acute intracranial abnormality. Unchanged 1.2 centimeter hyperattenuating mass in the right temporal fossa that may represent a meningioma. Old lacunar infarct in the left internal capsule. Chronic microvascular ischemic disease in the subcortical and periventricular white matter. 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 Patient presented to the ER via EMS after patient was found unresponsive. EMS stated that patient initial blood glucose was 25. Patient received dextrose 50 and patient immediately start wake up. Patient with a slurred speech which is chronic secondary to her previous stroke. Patient now is alert oriented. Patient blood sugar dropped to 69 again in the emergency room and she was given another dextrose 50. Patient remained stable on dextrose 10% at 150 mL per hour. The patient chest x-ray showed right lower lobe infiltrate. Patient was started on Levaquin. IV. Patient is currently on glipizide and insulin for her diabetes. I discussed the patient is Dr. Nazario, he agreed to admit the patient to medical service. Critical Care Time: Yes Critical care time in (mins) excluding proc time.: 30 Critical care attestation.: If time is entered above; I have spent that time in minutes in the direct care of this critically ill patient, excluding procedure time. ED Disposition Clinical Impression: Altered mental status, Hypoglycemia, Pneumonia Disposition: OP ADMIT IP TO THIS HOSP Is pt being admited?: Yes Condition: Stable Instructions: Bacterial Pneumonia (ED) Referrals: PRIMARY CARE, [Primary Care Provider] - 3-5 Days
[2018-06-08 13:37] LABS: Basophils % (Auto) 0.1 % (0.0-1.8); Hematocrit 44.2 % (30.3-42.9); Hemoglobin 14.5 gm/dl (10.1-14.3); Lymphocytes # (Auto) 0.6 K/mm3 (1.2-5.4); Mean Corpuscular HGB Conc 33 % (30-34); Mean Corpuscular Volume 93 fl (79-97); Monocytes # (Auto) 0.6 K/mm3 (0.0-0.8); Monocytes % (Auto) 5.6 % (0.0-7.3); Platelet Count 180 K/mm3 (140-440); Red Blood Count 4.76 M/mm3 (3.65-5.03); Red Cell Distribution Width 15.5 % (13.2-15.2)
[2018-06-08] MEDS: D10W 1,000 ML IV SCH ×2 (13:37→21:04)
[2018-06-08 13:52] LABS: Calcium 8.7 mg/dL (8.4-10.2)
[2018-06-08 13:55] LABS: Albumin 3.8 g/dL (3.9-5); Bilirubin,Direct 0.5 mg/dL (0-0.2)
--- NOTE | 2018-06-08 14:30 | XRay Report ---
FINAL REPORT EXAM: XR CHEST 1V AP HISTORY: chest pain COMPARISON: None. TECHNIQUE: Single frontal view of the chest FINDINGS: There is mild cardiomegaly. Scattered hazy nodular opacities throughout both lungs, with more focal opacity in the right lower lo be. No pleural effusion or pneumothorax. No acute bony or soft tissue abnormality. IMPRESSION: Scattered hazy nodular opacities throughout both lungs, with more focal opacity in the right lower lo be concerning for infection or inflammatory change. Mild cardiomegaly.
[2018-06-08] MEDS ORDERED: LEVAQUIN 500MG/100ML 500 MG/100 ML BAG IV ONE (14:45)
--- NOTE | 2018-06-08 15:20 | Cat Scan Report ---
FINAL REPORT EXAM: CT HEAD/BRAIN WO CON HISTORY: AMS COMPARISON: CT of the abdomen pelvis performed on 05/06/2018 TECHNIQUE: Multiple contiguous axial images were obtained from the skullbase to the vertex without a dministration of IV contrast. FINDINGS: There age related cerebral cortical atrophy. There is no parenchymal hemorrhage or extra-axial fluid collection. Unchanged 1.2 centimeter hyper attenuating mass in the right temporal fossa. There is no acute territorial infarct. There is an old lacunar infarct in the left internal capsule. There are sc attered areas of decreased attenuation in the subcortical and periventricular white matter, likely du e to chronic microvascular ischemic disease. The ventricles are midline. The subarachnoid spaces and basilar cisterns are clear. There is no skull fracture. Again seen is opacification of the left maxil amrita sinus. Postsurgical changes from prior right craniotomy. IMPRESSION: No acute intracranial abnormality. Unchanged 1.2 centimeter hyperattenuating mass in the right temporal fossa that may represent a menin gioma. Old lacunar infarct in the left internal capsule. Chronic microvascular ischemic disease in the subcortical and periventricular white matter.
--- NOTE | 2018-06-09 01:35 | History and Physical Report ---
History of Present Illness Date of examination: 06/08/18 Date of admission: 06/08/18 15:04 Chief complaint: Unresponsiveness few hours History of present illness: 82 years old female with history of CVA, diabetes, hypertension, meningioma status post resection.was found unresponsive. Initial BG was 29.Continued to be unresponsive in ER.Also BG was dropping inspite of D50w.Hence admission andres observation.And to adjust her oral hypoglycemics - Related Data Home Medications Medication Instructions Recorded Confirmed Last Taken Furosemide [Lasix TAB] 40 mg PO QDAY 11/20/17 06/08/18 Unknown Sitagliptin Phosphate [Januvia] 50 mg PO QDAY 11/20/17 06/08/18 Unknown Apixaban [Eliquis] 5 mg PO BID 05/06/18 06/08/18 Unknown Digoxin [Digox] 125 mcg PO Q2D 05/06/18 06/08/18 Unknown Lisinopril [Zestril TAB] 5 mg PO QDAY 05/06/18 06/08/18 Unknown Pravastatin [Pravachol] 80 mg PO QHS 05/06/18 06/08/18 Unknown tiZANidine [Zanaflex] 4 mg PO HS 05/06/18 06/08/18 Unknown Previous Rx's Medication Instructions Recorded Last Taken Type glipiZIDE [Glucotrol] 10 mg PO QDAY #30 tablet 11/16/15 1 Day Ago Rx ~06/27/16 Aspirin 81 mg PO DAILY #30 tab.chew 05/09/18 Unknown Rx Allergies Allergy/AdvReac Type Severity Reaction Status Date / Time No Known Allergies Allergy Verified 05/06/18 11:34 Past Medical History Hypertension: Yes CVA: Yes Congestive Heart Failure: Yes Diabetes: Yes GERD: YesArthritis: Yes Additional medical history: Atrial fibrillation Surgical History Coronary Stent: Yes Meningioma resection - Social History Smoking Status: Unknown if ever smoked - Medications Home Medications: Home Medications Medication Instructions Recorded Confirmed Last Taken Type glipiZIDE [Glucotrol] 10 mg PO QDAY #30 tablet 11/16/15 06/08/18 1 Day Ago Rx ~06/27/16 Furosemide [Lasix TAB] 40 mg PO QDAY 11/20/17 06/08/18 Unknown History Sitagliptin Phosphate [Januvia] 50 mg PO QDAY 11/20/17 06/08/18 Unknown History Apixaban [Eliquis] 5 mg PO BID 05/06/18 06/08/18 Unknown History Digoxin [Digox] 125 mcg PO Q2D 05/06/18 06/08/18 Unknown History Lisinopril [Zestril TAB] 5 mg PO QDAY 05/06/18 06/08/18 Unknown History Pravastatin [Pravachol] 80 mg PO QHS 05/06/18 06/08/18 Unknown History tiZANidine [Zanaflex] 4 mg PO HS 05/06/18 06/08/18 Unknown History Aspirin 81 mg PO DAILY #30 tab.chew 05/09/18 06/08/18 Unknown Rx Review of Systems ROS: Stated complaint: LOW BLOOD SUGAR Other details as noted in HPI Comment: All other systems reviewed and negative Constitutional: denies: chills, fever Respiratory: denies: cough, orthopnea, shortness of breath, SOB with exertion, SOB at rest, wheezing Cardiovascular: denies: chest pain, palpitations, dyspnea on exertion, orthopnea Gastrointestinal: denies: abdominal pain, nausea, vomiting, diarrhea, constipation, hematemesis, melena, hematochezia Skin: denies: rash Neurological: weakness (chronic) Medications and Allergies Allergies Allergy/AdvReac Type Severity Reaction Status Date / Time No Known Allergies Allergy Verified 05/06/18 11:34 Home Medications Medication Instructions Recorded Confirmed Last Taken Type glipiZIDE [Glucotrol] 10 mg PO QDAY #30 tablet 11/16/15 06/08/18 1 Day Ago Rx ~06/27/16 Furosemide [Lasix TAB] 40 mg PO QDAY 11/20/17 06/08/18 Unknown History Sitagliptin Phosphate [Januvia] 50 mg PO QDAY 11/20/17 06/08/18 Unknown History Apixaban [Eliquis] 5 mg PO BID 05/06/18 06/08/18 Unknown History Digoxin [Digox] 125 mcg PO Q2D 05/06/18 06/08/18 Unknown History Lisinopril [Zestril TAB] 5 mg PO QDAY 05/06/18 06/08/18 Unknown History Pravastatin [Pravachol] 80 mg PO QHS 05/06/18 06/08/18 Unknown History tiZANidine [Zanaflex] 4 mg PO HS 05/06/18 06/08/18 Unknown History Aspirin 81 mg PO DAILY #30 tab.chew 05/09/18 06/08/18 Unknown Rx Active Meds: Active Medications Dextrose (D10w) 1,000 mls @ 150 mls/hr IV DIRECT GENEVA Last Admin: 06/08/18 21:04 Dose: 150 mls/hr Documented by: Exam - Constitutional Vitals: Temp Pulse Resp BP Pulse Ox 99.4 F 65 16 93/49 97 06/08/18 19:13 06/08/18 19:13 06/08/18 19:13 06/08/18 19:13 06/08/18 19:13 General appearance: Present: no acute distress, well-nourished - EENT Eyes: Present: PERRL ENT: hearing intact, clear oral mucosa - Neck Neck: Present: supple, normal ROM - Respiratory Respiratory effort: normal Respiratory: bilateral: CTA - Cardiovascular Heart rate: 78 Rhythm: regular Heart Sounds: Present: S1 & S2. Absent: rub, click - Extremities Extremities: no ischemia, pulses intact, pulses symmetrical, No edema Peripheral Pulses: within normal limits - Abdominal General gastrointestinal: Present: soft, non-tender, non-distended, normal bowel sounds Female genitourinary: Present: normal - Rectal Rectal Exam: deferred - Integumentary Integumentary: Present: clear, warm, dry - Musculoskeletal Musculoskeletal: gait normal, strength equal bilaterally - Psychiatric Psychiatric: appropriate mood/affect, intact judgment & insight - Neurologic Neurologic: CNII-XII intact, moves all extremities - Allied Health Allied health notes reviewed: nursing, case management Results - Labs CBC & Chem 7: 06/08/18 13:06 06/08/18 13:06 Labs: Laboratory Last Values WBC 11.5 K/mm3 (4.5-11.0) H 06/08/18 13:06 RBC 4.76 M/mm3 (3.65-5.03) 06/08/18 13:06 Hgb 14.5 gm/dl (10.1-14.3) H 06/08/18 13:06 Hct 44.2 % (30.3-42.9) H 06/08/18 13:06 MCV 93 fl (79-97) 06/08/18 13:06 MCH 31 pg (28-32) 06/08/18 13:06 MCHC 33 % (30-34) 06/08/18 13:06 RDW 15.5 % (13.2-15.2) H 06/08/18 13:06 Plt Count 180 K/mm3 (140-440) 06/08/18 13:06 Lymph % (Auto) 5.0 % (13.4-35.0) L 06/08/18 13:06 [place] % (Auto) 5.6 % (0.0-7.3) 06/08/18 13:06 Eos % (Auto) 0.0 % (0.0-4.3) 06/08/18 13:06 Baso % (Auto) 0.1 % (0.0-1.8) 06/08/18 13:06 Lymph # 0.6 K/mm3 (1.2-5.4) L 06/08/18 13:06 [place] # 0.6 K/mm3 (0.0-0.8) 06/08/18 13:06 Eos # 0.0 K/mm3 (0.0-0.4) 06/08/18 13:06 Baso # 0.0 K/mm3 (0.0-0.1) 06/08/18 13:06 Seg Neutrophils % 89.3 % (40.0-70.0) H 06/08/18 13:06 Seg Neutrophils # 10.3 K/mm3 (1.8-7.7) H 06/08/18 13:06 Sodium 140 mmol/L (137-145) 06/08/18 13:06 Potassium 3.5 mmol/L (3.6-5.0) L 06/08/18 13:06 Chloride 99.9 mmol/L (98-107) 06/08/18 13:06 Carbon Dioxide 25 mmol/L (22-30) 06/08/18 13:06 Anion Gap 19 mmol/L 06/08/18 13:06 BUN 24 mg/dL (7-17) H 06/08/18 13:06 Creatinine 1.1 mg/dL (0.7-1.2) 06/08/18 13:06 Estimated GFR 58 ml/min 06/08/18 13:06 BUN/Creatinine Ratio 22 % 06/08/18 13:06 Glucose 77 mg/dL (65-100) 06/08/18 13:06 POC Glucose 156 (70-105) H 06/08/18 22:09 Calcium 8.7 mg/dL (8.4-10.2) 06/08/18 13:06 Total Bilirubin 1.40 mg/dL (0.1-1.2) H 06/08/18 13:21 Direct Bilirubin 0.5 mg/dL (0-0.2) H 06/08/18 13:21 Indirect Bilirubin 0.9 mg/dL 06/08/18 13:21 AST 25 units/L (5-40) 06/08/18 13:21 ALT 10 units/L (7-56) 06/08/18 13:21 Alkaline Phosphatase 108 units/L (35-129) 06/08/18 13:21 Troponin T 0.019 ng/mL (0.00-0.029) 06/08/18 13:21 Total Protein 6.9 g/dL (6.3-8.2) 06/08/18 13:21 Albumin 3.8 g/dL (3.9-5) L 06/08/18 13:21 Albumin/Globulin Ratio 1.2 % 06/08/18 13:21 - Imaging and Cardiology EKG: report reviewed (A fib 64/min) Assessment and Plan Advance Directives: Yes (Full code) VTE prophylaxis?: Chemical Plan of care discussed with patient/family: Yes - Patient Problems (1) Hypoglycemia Current Visit: Yes Status: Acute Plan to address problem: Will hold oral hypoglycemics Glipizide discontinued Will cont Sitagliptin (2) Acute encephalopathy Current Visit: Yes Status: Acute Plan to address problem: Sec to Hypoglycemia (3) HTN (hypertension) Current Visit: Yes Status: Chronic Qualifiers: Hypertension type: essential hypertension Qualified Code(s): I10 - Essential (primary) hypertension Plan to address problem: Cont antihypertensives (4) CVA (cerebrovascular accident) Current Visit: Yes Status: Chronic Qualifiers: CVA mechanism: thrombosis Laterality of affected vessel: left Plan to address problem: With residual rt sided weakness.Supportive care (5) T2DM (type 2 diabetes mellitus) Current Visit: Yes Status: Chronic Qualifiers: Diabetes mellitus usp insulin use: without esthetician permanent makeup artist use Plan to address problem: Will d/c Glipizide BG in the range of 130 to 180 is better than Hypoglycemia (6) HLD (hyperlipidemia) Current Visit: Yes Status: Chronic Qualifiers: Hyperlipidemia type: mixed hyperlipidemia Qualified Code(s): E78.2 - Mixed hyperlipidemia Plan to address problem: hold statins for now (7) A-fib Current Visit: Yes Status: Chronic Qualifiers: Atrial fibrillation type: chronic Qualified Code(s): I48.2 - Chronic atrial fibrillation Plan to address problem: Cont Eliquis (8) DVT prophylaxis Current Visit: No Status: Acute Plan to address problem: On lovenox
[2018-06-09] MEDS: ELIQUIS PO SCH ×3 (03:35→23:37)
[2018-06-09] MEDS: D10W 1,000 ML IV SCH ×3 (03:39→19:45)
--- NOTE | 2018-06-09 08:15 | Progress Note ---
Assessment and Plan Assessment and plan: 82 years old female with history of CVA, diabetes, hypertension, meningioma status post resection.was found unresponsive With initial blood glucose of 29. Head CT is unchange and re demonstrates Meningioma 1.2cm mass, unchanged. Acute Metabolic Encephalopathy secondary to Hypoglycemia Diabetes Mellitus complicated with Hypoglycemia CVA- By recent hx HTN But Hypotensive this am transiently Atrial Fibrillation Right submamary excoriations-Wound care consult Plan Continue supportive care Encourage PO intake Will discontinue home Glipizide Per patient she is tolerating diet but her Blood glucose was not being checked by family Will place a consult to Student Truck Driver to re-educate family Monitor Blood glucose level During last admission was persistently over 100mg/dl Monitor BP. No clear infectious etiology Continue other home medication including Eliquis Fall precaution DVT/GI prophy Anticipate discharge in 24 hrs History Interval history: Patient is seen today for: Hypoglycemia Seen and examined at bedside; 24hour events reviewed; nursing staff ; no adverse overnight events reported to me; Denies any chest pain, nausea, vomiting, diarrhea. she is tolerating diet. No fever noted blood pressure controlled Hospitalist Physical - Physical exam Narrative exam: VITAL SIGNS: Reviewed. GENERAL: The patient appeared well nourished and normally developed. Vital signs as documented. HEAD: No signs of head trauma. EYES: Pupils are equal. Extraocular motions intact. EARS: Hearing grossly intact. MOUTH: Oropharynx is normal. NECK: No adenopathy, no JVD. CHEST: Chest with clear breath sounds bilaterally. No wheezes, rales, or rhonchi. CARDIAC: Regular rate and rhythm. S1 and S2, without murmurs, gallops, or rubs. VASCULAR: No Edema. Peripheral pulses normal and equal in all extremities. ABDOMEN: Soft, without detectable tenderness. No sign of distention. No rebound or guarding, and no masses palpated. Bowel Sounds normal. MUSCULOSKELETAL: Good range of motion of all major joints. Extremities without clubbing, cyanosis or edema. NEUROLOGIC EXAM: Alert and oriented x 3. Right motor strenght 4/5 Speech normal. Follows commands. PSYCHIATRIC: Mood normal. SKIN: No rash or lesions. - Constitutional Vitals: Temp Pulse Resp BP Pulse Ox 99.0 F 75 20 85/50 98 06/09/18 07:30 06/09/18 07:30 06/09/18 07:30 06/09/18 07:30 06/09/18 07:30 General appearance: Present: no acute distress, well-nourished Results - Labs CBC & Chem 7: 06/08/18 13:06 06/08/18 13:06 Labs: Laboratory Last Values WBC 11.5 K/mm3 (4.5-11.0) H 06/08/18 13:06 RBC 4.76 M/mm3 (3.65-5.03) 06/08/18 13:06 Hgb 14.5 gm/dl (10.1-14.3) H 06/08/18 13:06 Hct 44.2 % (30.3-42.9) H 06/08/18 13:06 MCV 93 fl (79-97) 06/08/18 13:06 MCH 31 pg (28-32) 06/08/18 13:06 MCHC 33 % (30-34) 06/08/18 13:06 RDW 15.5 % (13.2-15.2) H 06/08/18 13:06 Plt Count 180 K/mm3 (140-440) 06/08/18 13:06 Lymph % (Auto) 5.0 % (13.4-35.0) L 06/08/18 13:06 [place] % (Auto) 5.6 % (0.0-7.3) 06/08/18 13:06 Eos % (Auto) 0.0 % (0.0-4.3) 06/08/18 13:06 Baso % (Auto) 0.1 % (0.0-1.8) 06/08/18 13:06 Lymph # 0.6 K/mm3 (1.2-5.4) L 06/08/18 13:06 [place] # 0.6 K/mm3 (0.0-0.8) 06/08/18 13:06 Eos # 0.0 K/mm3 (0.0-0.4) 06/08/18 13:06 Baso # 0.0 K/mm3 (0.0-0.1) 06/08/18 13:06 Seg Neutrophils % 89.3 % (40.0-70.0) H 06/08/18 13:06 Seg Neutrophils # 10.3 K/mm3 (1.8-7.7) H 06/08/18 13:06 Sodium 140 mmol/L (137-145) 06/08/18 13:06 Potassium 3.5 mmol/L (3.6-5.0) L 06/08/18 13:06 Chloride 99.9 mmol/L (98-107) 06/08/18 13:06 Carbon Dioxide 25 mmol/L (22-30) 06/08/18 13:06 Anion Gap 19 mmol/L 06/08/18 13:06 BUN 24 mg/dL (7-17) H 06/08/18 13:06 Creatinine 1.1 mg/dL (0.7-1.2) 06/08/18 13:06 Estimated GFR 58 ml/min 06/08/18 13:06 BUN/Creatinine Ratio 22 % 06/08/18 13:06 Glucose 77 mg/dL (65-100) 06/08/18 13:06 POC Glucose 156 (70-105) H 06/08/18 22:09 Calcium 8.7 mg/dL (8.4-10.2) 06/08/18 13:06 Total Bilirubin 1.40 mg/dL (0.1-1.2) H 06/08/18 13:21 Direct Bilirubin 0.5 mg/dL (0-0.2) H 06/08/18 13:21 Indirect Bilirubin 0.9 mg/dL 06/08/18 13:21 AST 25 units/L (5-40) 06/08/18 13:21 ALT 10 units/L (7-56) 06/08/18 13:21 Alkaline Phosphatase 108 units/L (35-129) 06/08/18 13:21 Troponin T 0.019 ng/mL (0.00-0.029) 06/08/18 13:21 Total Protein 6.9 g/dL (6.3-8.2) 06/08/18 13:21 Albumin 3.8 g/dL (3.9-5) L 06/08/18 13:21 Albumin/Globulin Ratio 1.2 % 06/08/18 13:21
[2018-06-09] MEDS: HumaLOG SUB-Q SCH ×5 (09:06→23:36)
[2018-06-09] MEDS ORDERED: NON-FORMULARY (Sitagliptin Phosphate [Januvia] 50 MG) PO SCH (10:00)
[2018-06-09] MEDS: LASIX PO SCH ×2 (10:06→10:14)
[2018-06-09] MEDS: ZESTRIL PO SCH ×2 (10:07→10:10)
[2018-06-09] MEDS: TRADJENTA PO SCH (10:07)
[2018-06-09] MEDS: BABY ASPIRIN PO SCH (10:07)
[2018-06-09] MEDS: LANOXIN PO SCH (17:46)
[2018-06-09 17:47] LABS: Bilirubin,Urine NEG (Negative); Blood,Urine SM (Negative); Color,Urine Yellow (Yellow); Protein,Urine <15 mg/dL mg/dL (Negative)
[2018-06-10 05:25] LABS: Hematocrit 34.4 % (30.3-42.9); Hemoglobin 11.5 gm/dl (10.1-14.3); Mean Corpuscular HGB Conc 34 % (30-34); Mean Corpuscular Volume 90 fl (79-97); Platelet Count 140 K/mm3 (140-440); Red Blood Count 3.81 M/mm3 (3.65-5.03); Red Cell Distribution Width 15.3 % (13.2-15.2)
[2018-06-10 05:54] LABS: Alanine Aminotransferase 10 units/L (7-56); Albumin 2.9 g/dL (3.9-5); BUN/Creatinine Ratio 18; Blood Urea Nitrogen 18 mg/dL (7-17); Calcium 8.3 mg/dL (8.4-10.2); Hemolysis Index 5
[2018-06-10] MEDS: HumaLOG SUB-Q SCH ×4 (08:09→22:10)
--- NOTE | 2018-06-10 08:55 | Progress Note ---
Assessment and Plan Assessment and plan: 82 years old female with history of CVA, diabetes, hypertension, meningioma status post resection.was found unresponsive With initial blood glucose of 29. Head CT is unchange and re demonstrates Meningioma 1.2cm mass, unchanged. Acute Metabolic Encephalopathy secondary to Hypoglycemia Diabetes Mellitus complicated with Hypoglycemia Acute cystitis CVA- By recent hx HTN But Hypotensive this am transiently Atrial Fibrillation Right submamary excoriations-Wound care consult Plan Continue supportive care Encourage PO intake Will discontinue home Glipizide- pt informed Add lantus due to increasing Blood glucose level On re-evualation patient is on D10, will stop. Discussed with Nursing and monitor on Rocephin for noted increasing leukcocytosis and Acute cystitis, await culture. Per patient she is tolerating diet but her Blood glucose was not being checked by family Will place a consult to Dental Detail Representative to re-educate family Monitor Blood glucose level During last admission was persistently over 100mg/dl Monitor BP. No clear infectious etiology Continue other home medication including Eliquis Fall precaution DVT/GI prophy Anticipate discharge in 24 hrs History Interval history: Patient is seen today for: Hypoglycemia Seen and examined at bedside; 24hour events reviewed; nursing staff ; no adverse overnight events reported to me; Denies any chest pain, nausea, vomiting, diarrhea. she is tolerating diet. No fever noted blood pressure controlled Hospitalist Physical - Physical exam Narrative exam: VITAL SIGNS: Reviewed. GENERAL: The patient appeared well nourished and normally developed. Vital signs as documented. HEAD: No signs of head trauma. EYES: Pupils are equal. Extraocular motions intact. EARS: Hearing grossly intact. MOUTH: Oropharynx is normal. NECK: No adenopathy, no JVD. CHEST: Chest with clear breath sounds bilaterally. No wheezes, rales, or rhonchi. CARDIAC: Regular rate and rhythm. S1 and S2, without murmurs, gallops, or rubs. VASCULAR: No Edema. Peripheral pulses normal and equal in all extremities. ABDOMEN: Soft, without detectable tenderness. No sign of distention. No rebound or guarding, and no masses palpated. Bowel Sounds normal. MUSCULOSKELETAL: Good range of motion of all major joints. Extremities without clubbing, cyanosis or edema. NEUROLOGIC EXAM: Alert and oriented x 3. Right motor strenght 4/5 Speech normal. Follows commands. PSYCHIATRIC: Mood normal. SKIN: No rash or lesions. - Constitutional Vitals: Temp Pulse Resp BP Pulse Ox 99.0 F 66 20 93/50 96 06/10/18 07:13 06/10/18 07:13 06/10/18 07:13 06/10/18 07:13 06/10/18 07:13 General appearance: Present: no acute distress, well-nourished Results - Labs CBC & Chem 7: 06/10/18 05:00 06/10/18 05:00 Labs: Laboratory Last Values WBC 11.9 K/mm3 (4.5-11.0) H 06/10/18 05:00 RBC 3.81 M/mm3 (3.65-5.03) 06/10/18 05:00 Hgb 11.5 gm/dl (10.1-14.3) D 06/10/18 05:00 Hct 34.4 % (30.3-42.9) D 06/10/18 05:00 MCV 90 fl (79-97) 06/10/18 05:00 MCH 30 pg (28-32) 06/10/18 05:00 MCHC 34 % (30-34) 06/10/18 05:00 RDW 15.3 % (13.2-15.2) H 06/10/18 05:00 Plt Count 140 K/mm3 (140-440) 06/10/18 05:00 Lymph % (Auto) 5.0 % (13.4-35.0) L 06/08/18 13:06 [place] % (Auto) 5.6 % (0.0-7.3) 06/08/18 13:06 Eos % (Auto) 0.0 % (0.0-4.3) 06/08/18 13:06 Baso % (Auto) 0.1 % (0.0-1.8) 06/08/18 13:06 Lymph # 0.6 K/mm3 (1.2-5.4) L 06/08/18 13:06 [place] # 0.6 K/mm3 (0.0-0.8) 06/08/18 13:06 Eos # 0.0 K/mm3 (0.0-0.4) 06/08/18 13:06 Baso # 0.0 K/mm3 (0.0-0.1) 06/08/18 13:06 Seg Neutrophils % 89.3 % (40.0-70.0) H 06/08/18 13:06 Seg Neutrophils # 10.3 K/mm3 (1.8-7.7) H 06/08/18 13:06 Sodium 130 mmol/L (137-145) L D 06/10/18 05:00 Potassium 3.7 mmol/L (3.6-5.0) 06/10/18 05:00 Chloride 92.7 mmol/L (98-107) L 06/10/18 05:00 Carbon Dioxide 25 mmol/L (22-30) 06/10/18 05:00 Anion Gap 16 mmol/L 06/10/18 05:00 BUN 18 mg/dL (7-17) H 06/10/18 05:00 Creatinine 1.0 mg/dL (0.7-1.2) 06/10/18 05:00 Estimated GFR > 60 ml/min 06/10/18 05:00 BUN/Creatinine Ratio 18 % 06/10/18 05:00 Glucose 223 mg/dL (65-100) H 06/10/18 05:00 POC Glucose 270 (70-105) H 06/10/18 07:18 Hemoglobin A1c 10.7 % (4-6) H 06/10/18 05:00 Calcium 8.3 mg/dL (8.4-10.2) L 06/10/18 05:00 Total Bilirubin 2.10 mg/dL (0.1-1.2) H 06/10/18 05:00 Direct Bilirubin 0.5 mg/dL (0-0.2) H 06/08/18 13:21 Indirect Bilirubin 0.9 mg/dL 06/08/18 13:21 AST 23 units/L (5-40) 06/10/18 05:00 ALT 10 units/L (7-56) 06/10/18 05:00 Alkaline Phosphatase 91 units/L (35-129) 06/10/18 05:00 Troponin T 0.019 ng/mL (0.00-0.029) 06/08/18 13:21 Total Protein 6.4 g/dL (6.3-8.2) 06/10/18 05:00 Albumin 2.9 g/dL (3.9-5) L 01/08/19 05:00 Albumin/Globulin Ratio 0.8 % 06/10/18 05:00 Urine Color Yellow (Yellow) 06/09/18 Unknown Urine Turbidity Clear (Clear) 06/09/18 Unknown Urine pH 5.0 (5.0-7.0) 06/09/18 Unknown Ur Specific [place] 1.006 (1.003-1.030) 06/09/18 Unknown Urine Protein <15 mg/dl mg/dL (Negative) 06/09/18 Unknown Urine Glucose (UA) 50 mg/dL (Negative) 06/09/18 Unknown Urine Ketones Neg mg/dL (Negative) 06/09/18 Unknown Urine Blood Sm (Negative) 06/09/18 Unknown Urine Nitrite Neg (Negative) 06/09/18 Unknown Urine Bilirubin Neg (Negative) 06/09/18 Unknown Urine Urobilinogen 2.0 mg/dL (<2.0) 06/09/18 Unknown Ur Leukocyte Esterase Mod (Negative) 06/09/18 Unknown Urine WBC (Auto) 15.0 /HPF (0.0-6.0) H 06/09/18 Unknown Urine RBC (Auto) 2.0 /HPF (0.0-6.0) 06/09/18 Unknown U Epithel Cells (Auto) 4.0 /HPF (0-13.0) 06/09/18 Unknown
[2018-06-10] MEDS: ELIQUIS PO SCH ×2 (09:25→21:32)
[2018-06-10] MEDS: LASIX PO SCH (09:25)
[2018-06-10] MEDS: BABY ASPIRIN PO SCH (09:25)
[2018-06-10] MEDS: TRADJENTA PO SCH (09:25)
[2018-06-10] MEDS: ROCEPHIN/NS 1 GM/50 ML 1 GM/50 ML BAG IV SCH (09:31)
[2018-06-10] MEDS: ZESTRIL PO SCH (10:00)
[2018-06-10] MEDS ORDERED: HumuLIN R SUB-Q ONE (10:00)
[2018-06-10] MEDS: D10W 1,000 ML IV SCH (13:33)
[2018-06-10] MEDS ORDERED: LANTUS SUB-Q SCH ×2 (22:00)
--- NOTE | 2018-06-11 09:07 | Discharge Summary ---
Providers - Providers Date of Admission: 06/08/18 15:04 Attending physician: LAURA LAYTON MD 06/09/18 08:25 Consult to Wound/ET Nurse [CONS] Routine Reason For Exam: wound eval Primary care physician: HOG [employer] Hospitalization Reason for admission: hypoglycemia Condition: Stable Hospital course: 82 years old female with history of CVA, diabetes, hypertension, meningioma status post resection.was found unresponsive With initial blood glucose of 29. Head CT is unchange and re demonstrates Meningioma 1.2cm mass, unchanged. On admission the patient was treated with D10. Further review showed that the patient has been on glipizide which we'll discontinue an indication to provide to the family and also per the patient her blood glucose was not being checked while she was getting insulin she has since improved while here in the hospital she also was noted to have acute cystitis for which she was treated with antibiotics with improvement. She stated at this time for discharge Acute Metabolic Encephalopathy secondary to Hypoglycemia Diabetes Mellitus complicated with Hypoglycemia Acute cystitis CVA- By recent hx HTN But Hypotensive this am transiently Atrial Fibrillation Right submamary excoriations POA Disposition: [id number]-06 HOME UNDER HOME HLTH Time spent for discharge: 35 MINS Core Measure Documentation - Palliative Care Palliative Care/ Comfort Measures: Not Applicable - Core Measures Any of the following diagnoses?: none Exam - Physical Exam Narrative exam: VITAL SIGNS: Reviewed. GENERAL: The patient appeared well nourished and normally developed. Vital signs as documented. HEAD: No signs of head trauma. EYES: Pupils are equal. Extraocular motions intact. EARS: Hearing grossly intact. MOUTH: Oropharynx is normal. NECK: No adenopathy, no JVD. CHEST: Chest with clear breath sounds bilaterally. No wheezes, rales, or rhonchi. CARDIAC: Regular rate and rhythm. S1 and S2, without murmurs, gallops, or rubs. VASCULAR: No Edema. Peripheral pulses normal and equal in all extremities. ABDOMEN: Soft, without detectable tenderness. No sign of distention. No rebound or guarding, and no masses palpated. Bowel Sounds normal. MUSCULOSKELETAL: Good range of motion of all major joints. Extremities without clubbing, cyanosis or edema. NEUROLOGIC EXAM: Alert and oriented x 3. Right motor strenght 4/5 Speech normal. Follows commands. PSYCHIATRIC: Mood normal. SKIN: No rash or lesions. - Constitutional Vitals: Temp Pulse Resp BP Pulse Ox 99.0 F 79 20 112/57 77 L 06/11/18 08:51 06/11/18 08:51 06/11/18 08:51 06/11/18 08:51 06/11/18 08:51 Plan Activity: advance as tolerated, fall precautions Diet: diabetic Special Instructions: record daily BP diary, physical therapy, occupational therapy, home health RN Additional Instructions: CONTINUE LANTUS UNTILL SEEN BY PCP TO ADJUST JANUVIA. Must check BLOOD GLUCOSE AT LEAST TWICE A DAY Follow up with: PRIMARY CARE,MD [Primary Care Provider] - 3-5 Days Prescriptions: Insulin Glargine [Lantus VIAL] 10 units SUB-Q QHS 30 Days units Other Discharge Orders: Glucometer supplies[Amb] Location: None Selected Glucometer (Amb) Location: None Selected
[2018-06-11] MEDS: LASIX PO SCH (09:38)
[2018-06-11] MEDS: TRADJENTA PO SCH (09:38)
[2018-06-11] MEDS: ELIQUIS PO SCH (09:39)
[2018-06-11] MEDS: ZESTRIL PO SCH (09:40)
[2018-06-11] MEDS: BABY ASPIRIN PO SCH (09:40)
[2018-06-11] MEDS: HumaLOG SUB-Q SCH ×3 (09:41→16:30)
[2018-06-11] MEDS: ROCEPHIN/NS 1 GM/50 ML 1 GM/50 ML BAG IV SCH (10:39)
[2018-06-11 18:02] VITALS: BP 107/55
[2018-06-11] MEDS: LANOXIN PO SCH (18:17)
--- NOTE | 2018-06-18 15:43 | Query-Infection ---
Clem Bettencourt___[place] Date:__06/18/2018 Security Installation Sales Technician/CDS:__Araceli Phone#:__[phone] Exercise your independent professional judgment when responding to this query. Questions asked do not imply a particular answer is desired or expected. We greatly appreciate your clarification on this issue. Clinical Documentation States: Patient is a 82 years old female was found unresponsive. The ER note stated "Pneumonia." The Discharge summary stated "Acute Metabolic Encephalopathy secondary to Hypoglycemia Acute cystitis." Clinical findings show: (please check applicable parameters) RR (06/08): 27 WBC (06/08): 11.5 Infection, known /suspected, with some of the following indicators; Specify the infection: General parameters [ ] Fever (core temp >38.30C or 100.40F) [ ] Hypothermia (core temp <36C) [ ] Heart rate >90 bpm [X] Tachypnea: >20 bpm or pCO2 < 32 mmHg [X] Altered mental status [ ] Significant edema / +ve fluid balance (>20 ml/kg 24 h) [ ] Hyperglycemia (Bl. glucose >110 mg/dl) w/o diabetes Inflammatory parameters [ ] Leukocytosis (white blood cell count >12,000/l) [ ] Leukopenia (white blood cell count <4,000/l) [ ] Bandemia (immature WBC > 10%) [ ] Leucocyte Left Shift [ ] Plasma procalcitonin>2 SD above the normal value Hemodynamic and tissue perfusion parameters [ ] Arterial hypotension(SBP <90 mmHg, MAP <70 mmHg,or a SBP drop >40 mmHg in adults) [ ] Hyperlactatemia (>3 mmol/l) [ ] Anion Gap (> 11mEG/l) [ ] Decreased capillary refill or mottling Organ dysfunction parameters [ ] Arterial hypoxemia (PaO2/FIO2 <300) [ ] Creatinine increase =0.5 mg/dl [ ] Acute oliguria (urine output <0.5 ml | kg |h or 45 mM/l for at least 2 hrs) [ ] Coagulation abnormalities (INR >1.5 or activated partial thromboplastin time >60 s) [ ] Ileus (absent suzie wel sounds) [ ] Thrombocytopenia (platelet count <100,000/l) [ ] Hyperbilirubinemia (plasma total bilirubin >4 mg/dl) According to the clinical indications above, can Bacteremia be further specified? If so, please indicate below and in your Progress Notes and/ or Discharge Summary. Indicate if the condition was present on admission. PHYSICIAN RESPONSE: [ ] Sepsis [ ] Severe Sepsis [ ] Septic Shock [ ] Septicemia [ ] Sepsis now resolved [ x] SIRS due to non-infectious cause with organ dysfunction [ ] SIRS due to non-infectious cause without organ dysfunction [ ] Other: [ ] Comment/Explanation: Present on Admission: [ x] Yes (Y) [ ] Clinically undeterminable (W) [ ] No (N) [ ] Ruled Out Please also document response in your Progress Notes and/or Discharge Summary and indicate if the condition was present on admission Notes: SIRS/ SIRS WITH ORGAN DYSFUNCTION Systemic inflammatory response syndrome (SIRS) generally refers to the systemic response to trauma/haider or other insult such as Acute Myocardial Infarction, Acute Pancreatitis, and Major Surgery with symptoms including fever, tachycardia, tachypnea, and leukocytosis (1). BACTEREMIA Presence of viable bacteria in the circulating blood (2). This term is reserved for patients that do not manifest above SIRS response. SEPTICEMIA Generally refers to a systemic disease associated with the presence of pathological microorganisms or toxins in the blood, which can include bacteria, viruses, fungi or other organisms (1). SEPSIS Generally refers to SIRS due infection (1). SEVERE SEPSIS Generally refers to sepsis associated with acute organ dysfunction (1). SEPTIC SHOCK Generally refers to circulatory failure associated with severe sepsis (2), and defined as hypotension or hypoperfusion despite adequate fluid resuscitation (1 hour) (3). REFERENCES: 1. [employer]/Society of Critical Care Medicine Consensus Conference. Definitions for sepsis and organ failure and guidelines for the use of innovative therapies in sepsis. Critical Care Med 1992;20:864 - 74. 2. Vishal brooks MM, Enoc MP, Husam BABIN, Christopher E, Renato D, John Paul D, Delfino J, Elsa SM, Alan JL, Taurus G; International Sepsis Definitions Conference. 2001 SCCM/ESICM/ACCP/ATS/SIS International Sepsis Definitions Conference. Intensive Care Med. 2002 Apr;29(4):530-8. Epub 2002Aug 28. Review. PubMed PMID:[id number] 3. ICD-9-CM Official Guidelines for Coding and Reporting 4. Medscape Drugs, Diseases and Procedures references 5. [employer] Textbook of Internal Medicine. 18th Edition MTDD
== END 2018-06-11 19:26 | disposition home health service (06) | DRG 637 ==
LOC: ED 12:49 → 2B-ACE 15:04
PROVIDERS: ADMIT Internal Medicine; ATTEND Internal Medicine
DX: E11.649 Type 2 diabetes mellitus with hypoglycemia without coma (principal); G93.41 Metabolic encephalopathy; J18.9 Pneumonia, unspecified organism; N30.00 Acute cystitis without hematuria; I69.351 Hemiplegia and hemiparesis following cerebral infarction affecting right dominant side; R65.10 Systemic inflammatory response syndrome (SIRS) of non-infectious origin without acute organ dysfunction; T14.8XXA Other injury of unspecified body region, initial encounter; K21.9 Gastro-esophageal reflux disease without esophagitis; I11.0 Hypertensive heart disease with heart failure; I50.9 Heart failure, unspecified; E78.2 Mixed hyperlipidemia; I48.2 Chronic atrial fibrillation; M19.90 Unspecified osteoarthritis, unspecified site; Y93.9 Activity, unspecified; Y99.8 Other external cause status; Y92.89 Other specified places as the place of occurrence of the external cause; Z95.5 Presence of coronary angioplasty implant and graft; Z79.82 Long term (current) use of aspirin; Z79.899 Other long term (current) drug therapy
CPT/HCPCS: 36415; 70450; 71045; 80048; 80053; 80076; 81001; 82962; 83036; 84484; 85025; 85027; 87040; 87086; 87116; 93005; 93010; 96365; 96366; G0378; J0696; J1815; J1956

== ENCOUNTER 2018-11-07 16:59 | Emergency (ER) | payer MEDICARE ==
--- NOTE | 2018-11-07 17:47 | Emergency Department Report ---
ED Abdominal Pain HPI - General Chief Complaint: Abdominal Pain Stated Complaint: ABD PAIN Time Seen by Provider: 11/07/18 17:46 Source: patient, EMS Mode of arrival: Stretcher Limitations: No Limitations - History of Present Illness Initial Comments: Patient is an 83-year-old female that presents to emergency room with intermittent epigastric pain 5 days. Patient states the pain is gone right now. Patient states physical burning sensation in her belly. Patient states the pain does not radiate. Patient states pain is better with rest. Patient states the pain is worse with certain foods and coffee. Patient states it is a 4-5 out of 10 when she has the flareup. Patient states she does not have any pain at this time. MD Complaint: abdominal pain -: Sudden Location: epigastric Radiation: none Severity scale (0 -10): 0 Consistency: intermittent, now resolved Improves With: rest Worsens With: eating Associated Symptoms: denies: nausea, vomiting, diarrhea, fever, chills, constipation, dysuria, hematemesis, hematochezia, melena, hematuria, anorexia, syncope - Related Data Home Medications Medication Instructions Recorded Confirmed Last Taken Furosemide [Lasix TAB] 40 mg PO QDAY 11/20/17 06/08/18 Unknown Sitagliptin Phosphate [Januvia] 50 mg PO QDAY 11/20/17 06/08/18 Unknown Apixaban [Eliquis] 5 mg PO BID 05/06/18 06/08/18 Unknown Digoxin [Digox] 125 mcg PO Q2D 05/06/18 06/08/18 Unknown Lisinopril [Zestril TAB] 5 mg PO QDAY 05/06/18 06/08/18 Unknown Pravastatin [Pravachol] 80 mg PO QHS 05/06/18 06/08/18 Unknown tiZANidine [Zanaflex 4mg TAB] 4 mg PO HS 05/06/18 06/08/18 Unknown Previous Rx's Medication Instructions Recorded Last Taken Type Aspirin 81 mg PO DAILY #30 tab.chew 05/09/18 Unknown Rx Insulin Glargine [Lantus VIAL] 10 units SUB-Q QHS 30 Days units 06/11/18 Unknown Rx Esomeprazole Magnesium [NexIUM] 40 mg PO QDAY 30 Days #30 11/07/18 Unknown Rx capsule. Allergies Allergy/AdvReac Type Severity Reaction Status Date / Time No Known Allergies Allergy Verified 05/06/18 11:34 ED Review of Systems ROS: Stated complaint: ABD PAIN Other details as noted in HPI Constitutional: denies: chills, fever Eyes: denies: eye pain, eye discharge, vision change ENT: denies: ear pain, throat pain Respiratory: denies: cough, shortness of breath, wheezing Cardiovascular: denies: chest pain, palpitations Endocrine: no symptoms reported Gastrointestinal: abdominal pain. denies: nausea, diarrhea Genitourinary: denies: urgency, dysuria, discharge Musculoskeletal: denies: back pain, joint swelling, arthralgia Skin: denies: rash, lesions Neurological: denies: headache, weakness, paresthesias Psychiatric: denies: anxiety, depression Hematological/Lymphatic: denies: easy bleeding, easy bruising ED Past Medical Hx - Past Medical History Previous Medical History?: Yes Hx Hypertension: Yes Hx CVA: Yes Hx Heart Attack/AMI: No Hx Congestive Heart Failure: Yes Hx Diabetes: Yes Hx Deep Vein Thrombosis: No Hx GERD: Yes Hx Liver Disease: No Hx Sickle Cell Disease: No Hx Arthritis: Yes Hx Asthma: No Hx HIV: No Additional medical history: Atrial fibrillation - Surgical History Past Surgical History?: Yes Hx Coronary Stent: Yes Hx Pacemaker: No Hx Internal Defibrillator: No Additional Surgical History: "BLOOD IN HEAD REMOVED" - Family History Family history: no significant - Social History Smoking Status: Never Smoker Substance Use Type: None - Medications Home Medications: Home Medications Medication Instructions Recorded Confirmed Last Taken Type Furosemide [Lasix TAB] 40 mg PO QDAY 11/20/17 06/08/18 Unknown History Sitagliptin Phosphate [Januvia] 50 mg PO QDAY 11/20/17 06/08/18 Unknown History Apixaban [Eliquis] 5 mg PO BID 05/06/18 06/08/18 Unknown History Digoxin [Digox] 125 mcg PO Q2D 05/06/18 06/08/18 Unknown History Lisinopril [Zestril TAB] 5 mg PO QDAY 05/06/18 06/08/18 Unknown History Pravastatin [Pravachol] 80 mg PO QHS 05/06/18 06/08/18 Unknown History tiZANidine [Zanaflex 4mg TAB] 4 mg PO HS 05/06/18 06/08/18 Unknown History Aspirin 81 mg PO DAILY #30 tab.chew 05/09/18 06/08/18 Unknown Rx Insulin Glargine [Lantus VIAL] 10 units SUB-Q QHS 30 Days units 06/11/18 Unknown Rx Esomeprazole Magnesium [NexIUM] 40 mg PO QDAY 30 Days #30 11/07/18 Unknown Rx capsule. ED Physical Exam - General Limitations: No Limitations General appearance: alert, in no apparent distress - Head Head exam: Present: atraumatic, normocephalic - Eye Eye exam: Present: normal appearance - ENT ENT exam: Present: mucous membranes moist - Neck Neck exam: Present: normal inspection - Respiratory Respiratory exam: Present: normal lung sounds bilaterally. Absent: respiratory distress - Cardiovascular Cardiovascular Exam: Present: regular rate, normal rhythm. Absent: systolic murmur, diastolic murmur, rubs, gallop - GI/Abdominal GI/Abdominal exam: Present: soft, normal bowel sounds. Absent: distended, tenderness, guarding - Extremities Exam Extremities exam: Present: normal inspection - Back Exam Back exam: Present: normal inspection - Neurological Exam Neurological exam: Present: alert, oriented X3 - Psychiatric Psychiatric exam: Present: normal affect, normal mood - Skin Skin exam: Present: warm, dry, intact, normal color. Absent: rash ED Course Vital Signs 11/07/18 11/07/18 11/07/18 18:13 18:25 20:56 Temperature 98.7 F Pulse Rate 78 60 Respiratory 17 17 18 Rate Blood Pressure 114/62 129/77 [Right] O2 Sat by Pulse 100 100 97 Oximetry - Reevaluation(s) Reevaluation #1: Discussed all results with patient. Patient will be discharged home. Patient given discharge instructions. Patient voiced understanding of discharge instructions. Patient agrees to plan of care. Family at bedside 11/07/18 20:20 ED Medical Decision Making - Lab Data Result diagrams: 11/07/18 17:52 11/07/18 17:52 - Medical Decision Making Patient is an 83-year-old female that presents emergency with intermittent epigastric pain. Patient clinical findings and situation consistent with gastritis and acid reflux. Patient was discharged home on medication. Patient's labs unremarkable. Patient stable entire time in the ER. - Differential Diagnosis GERD. Gastritis. Abdominal pain Critical care attestation.: If time is entered above; I have spent that time in minutes in the direct care of this critically ill patient, excluding procedure time. ED Disposition Clinical Impression: Gastritis Qualifiers: Gastritis type: unspecified gastritis Chronicity: acute Gastritis bleeding: without bleeding Qualified Code(s): K29.00 - Acute gastritis without bleeding GERD (gastroesophageal reflux disease) Qualifiers: Esophagitis presence: without esophagitis Qualified Code(s): K21.9 - Gastro- esophageal reflux disease without esophagitis Disposition: TO HOME OR SELFCARE Is pt being admited?: No Does the pt Need Aspirin: No Condition: Stable Instructions: Gastritis (ED), Diet for Ulcers and Gastritis (ED), Abdominal Pain (ED) Additional Instructions: Patient to follow-up with primary care in 2-3 days. Patient to follow-up with activities manager in 2-3 days.. Patient to eat a GERD diet. Patient to return to ER if condition worsens. Patient to take meds as directed. Patient to increase water. Patient to rest. Patient to continue all meds. Prescriptions: Esomeprazole Magnesium [NexIUM] 40 mg PO QDAY 30 Days #30 capsule.dr Referrals: FAMILIA SÁNCHEZMAYODAN MD KAITLIN [Primary Care Provider] - 2-3 Days YURI ALEXANDER MD [Staff Physician] - 2-3 Days Time of Disposition: 20:23
[2018-11-07 18:16] LABS: Basophils % (Auto) 0.8 % (0.0-1.8); Eosinophils # (Auto) 0.1 K/mm3 (0.0-0.4); Hematocrit 36.4 % (30.3-42.9); Hemoglobin 11.9 gm/dl (10.1-14.3); Lymphocytes # (Auto) 1.6 K/mm3 (1.2-5.4); Lymphocytes % (Auto) 28.8 % (13.4-35.0); Mean Corpuscular HGB Conc 33 % (30-34); Mean Corpuscular Volume 94 fl (79-97); Monocytes # (Auto) 0.5 K/mm3 (0.0-0.8); Monocytes % (Auto) 9.1 % (0.0-7.3); Platelet Count 170 K/mm3 (140-440); Red Blood Count 3.89 M/mm3 (3.65-5.03); Red Cell Distribution Width 15.3 % (13.2-15.2)
[2018-11-07 18:38] LABS: Albumin 3.1 g/dL (3.9-5); Calcium 8.9 mg/dL (8.4-10.2)
[2018-11-07 20:57] VITALS: BP 129/77
== END 2018-11-07 20:57 | disposition home or self-care (01) ==
LOC: ED 16:59
DX: K29.00 Acute gastritis without bleeding (principal); K21.9 Gastro-esophageal reflux disease without esophagitis; I11.0 Hypertensive heart disease with heart failure; I50.9 Heart failure, unspecified; E11.9 Type 2 diabetes mellitus without complications; M19.90 Unspecified osteoarthritis, unspecified site
CPT/HCPCS: 36415; 80053; 85025

== ENCOUNTER 2018-12-19 05:12 | Inpatient (IN) | payer MEDICARE ==
[~2018-12-19 05:12] MED LIST: AMIDATE IV ONE; QUELICIN ONE
[2018-12-19] MEDS ORDERED: ADRENALIN IV ONE (06:05)
[2018-12-19] MEDS ORDERED: D50W (25GM) Syringe IV ONE (06:05)
[2018-12-19] MEDS ORDERED: ADRENALIN ONE (06:05)
[2018-12-19] MEDS ORDERED: ROCEPHIN/NS 1 GM/50 ML 1 GM/50 ML BAG IV ONE ×2 (06:09→11:06)
[2018-12-19] MEDS ORDERED: ZITHROMAX 500 MG in NACL 0.9% 250ML 250 ML IV ONE (06:10)
--- NOTE | 2018-12-19 06:11 | Emergency Department Report ---
ED General Adult HPI - General Chief complaint: Dyspnea/Respdistress Stated complaint: GERMAINE Time Seen by Provider: 12/19/18 06:01 Source: patient, EMS (ems notes not available at time of chart dictation), RN notes reviewed, old records reviewed Mode of arrival: Stretcher Limitations: Physical Limitation - History of Present Illness Initial comments: This is an 83-year-old female. The patient is not known to this provider previously. Her past medical history includes reported congestive heart failure, ejection fraction 45-50%, reported chronic atrial fibrillation, on systemic anticoagulation, eliquis, GERD, hypertension, question dementia, history of meningioma. The patient is brought to the hospital by EMS for reported shortness of breath. Apparently, the shortness of breath started within the past 24 hours. Apparently, patient was given nebulizer therapy prior to arrival. She was started on BiPAP prior to my evaluation. The patient indicates that she is not having pain. The patient indicates she is having shortness of breath. She is not able to describe the onset of her symptoms, she is not able to describe exacerbating or relieving factors. The patient indicates no headache, neck pain, chest pain, abdominal pain. She does indicate that her BiPAP has improved her shortness of breath. Currently, no friends or family are available at this time for collateral information. -: unknown Quality: other Consistency: other Improves with: other Worsens with: other Associated Symptoms: shortness of breath - Related Data Home Medications Medication Instructions Recorded Confirmed Last Taken Furosemide [Lasix TAB] 40 mg PO QDAY 11/20/17 06/08/18 Unknown Sitagliptin Phosphate [Januvia] 50 mg PO QDAY 11/20/17 06/08/18 Unknown Apixaban [Eliquis] 5 mg PO BID 05/06/18 06/08/18 Unknown Digoxin [Digox] 125 mcg PO Q2D 05/06/18 06/08/18 Unknown Lisinopril [Zestril TAB] 5 mg PO QDAY 05/06/18 06/08/18 Unknown Pravastatin [Pravachol] 80 mg PO QHS 05/06/18 06/08/18 Unknown tiZANidine [Zanaflex 4mg TAB] 4 mg PO HS 05/06/18 06/08/18 Unknown Previous Rx's Medication Instructions Recorded Last Taken Type Aspirin 81 mg PO DAILY #30 tab.chew 05/09/18 Unknown Rx Insulin Glargine [Lantus VIAL] 10 units SUB-Q QHS 30 Days units 06/11/18 Unknown Rx Esomeprazole Magnesium [NexIUM] 40 mg PO QDAY 30 Days #30 11/07/18 Unknown Rx capsule. Allergies Allergy/AdvReac Type Severity Reaction Status Date / Time No Known Allergies Allergy Verified 05/06/18 11:34 ED Review of Systems ROS: Stated complaint: GERMAINE Other details as noted in HPI Comment: Unobtainable due to pts medical conditions Constitutional: malaise ENT: congestion Respiratory: shortness of breath, wheezing Cardiovascular: edema Gastrointestinal: denies: abdominal pain Neurological: weakness Psychiatric: anxiety ED Past Medical Hx - Past Medical History Hx Hypertension: Yes Hx CVA: Yes Hx Heart Attack/AMI: No Hx Congestive Heart Failure: Yes Hx Diabetes: Yes Hx Deep Vein Thrombosis: No Hx GERD: Yes Hx Liver Disease: No Hx Sickle Cell Disease: No Hx Arthritis: Yes Hx Asthma: No Hx HIV: No Additional medical history: Atrial fibrillation - Surgical History Hx Coronary Stent: Yes Hx Pacemaker: No Hx Internal Defibrillator: No Additional Surgical History: "BLOOD IN HEAD REMOVED" - Social History Smoking Status: Never Smoker Substance Use Type: None - Medications Home Medications: Home Medications Medication Instructions Recorded Confirmed Last Taken Type Furosemide [Lasix TAB] 40 mg PO QDAY 11/20/17 06/08/18 Unknown History Sitagliptin Phosphate [Januvia] 50 mg PO QDAY 11/20/17 06/08/18 Unknown History Apixaban [Eliquis] 5 mg PO BID 05/06/18 06/08/18 Unknown History Digoxin [Digox] 125 mcg PO Q2D 05/06/18 06/08/18 Unknown History Lisinopril [Zestril TAB] 5 mg PO QDAY 05/06/18 06/08/18 Unknown History Pravastatin [Pravachol] 80 mg PO QHS 05/06/18 06/08/18 Unknown History tiZANidine [Zanaflex 4mg TAB] 4 mg PO HS 05/06/18 06/08/18 Unknown History Aspirin 81 mg PO DAILY #30 tab.chew 05/09/18 06/08/18 Unknown Rx Insulin Glargine [Lantus VIAL] 10 units SUB-Q QHS 30 Days units 01/09/19 Unknown Rx Esomeprazole Magnesium [NexIUM] 40 mg PO QDAY 30 Days #30 11/07/18 Unknown Rx capsule. ED Physical Exam - General Limitations: Physical Limitation General appearance: alert, anxious, in distress - Head Head exam: Present: atraumatic, normocephalic - Eye Eye exam: Present: normal appearance - ENT ENT exam: Present: normal exam, mucous membranes moist, normal external ear exam - Neck Neck exam: Present: normal inspection, full ROM. Absent: tenderness, meningis mus - Respiratory Respiratory exam: Present: respiratory distress, rales, rhonchi - Cardiovascular Cardiovascular Exam: Present: tachycardia, irregular rhythm. Absent: bradycardia, systolic murmur, diastolic murmur, rubs, gallop - GI/Abdominal GI/Abdominal exam: Present: soft. Absent: distended, tenderness, guarding, rebound, rigid, pulsatile mass - Extremities Exam Extremities exam: Present: normal inspection, pedal edema, other (2+ pulses noted in the bilateral upper, lower extremities. Compartments soft. No long bony tenderness. The pelvis is stable.). Absent: calf tenderness - Back Exam Back exam: Present: normal inspection, full ROM. Absent: tenderness, CVA tenderness (R), CVA tenderness (L), paraspinal tenderness, vertebral tenderness - Neurological Exam Neurological exam: Present: alert, other (Extraocular movements intact. Tongue midline. No facial droop. Facial sensation intact to light touch in the V1, V2, V3 distribution bilaterally. 5 and 5 strength in 4 extremities.. Sensation is intact to light touch in 4 extremities.) - Psychiatric Psychiatric exam: Present: anxious - Skin Skin exam: Present: warm, dry, intact, normal color. Absent: rash ED Course Vital Signs 12/19/18 12/19/18 12/19/18 05:45 06:03 07:15 Temperature 95.3 F L Pulse Rate 105 H 114 H 109 H Respiratory 16 30 H 30 H Rate Blood Pressure 105/64 108/64 Blood Pressure [Left] O2 Sat by Pulse 100 100 100 Oximetry 12/19/18 12/19/18 08:28 08:29 Temperature 99.1 F 99.1 F Pulse Rate 98 H Respiratory 17 Rate Blood Pressure Blood Pressure 114/62 [Left] O2 Sat by Pulse 89 Oximetry - Reevaluation(s) Reevaluation #1: 12/19/18 07:17 Dr Sonia French to admit Reevaluation #2: 12/19/18 09:35 Patient appears clinically improved on BiPAP. Repeat arterial blood gas reviewed and appreciated. Patient appears clinically improved on BiPAP. Repeat arterial blood gas reviewed and appreciated. ED Medical Decision Making - Lab Data Result diagrams: 12/19/18 06:00 12/19/18 06:00 Vital Signs 12/19/18 12/19/18 05:45 06:03 Temperature 95.3 F L Pulse Rate 105 H 114 H Respiratory 16 30 H Rate Blood Pressure 105/64 108/64 O2 Sat by Pulse 100 100 Oximetry Lab Results 12/19/18 12/19/18 12/19/18 Range/Units 05:59 06:00 06:00 WBC 9.4 (4.5-11.0) K/mm3 RBC 4.53 (3.65-5.03) M/mm3 Hgb 13.3 (10.1-14.3) gm/dl Hct 41.8 (30.3-42.9) % MCV 92 (79-97) fl MCH 29 (28-32) pg MCHC 32 (30-34) % RDW 15.8 H (13.2-15.2) % Plt Count 221 (140-440) K/mm3 Lymph % (Auto) 8.7 L (13.4-35.0) % Jackson % (Auto) 5.9 (0.0-7.3) % Eos % (Auto) 0.1 (0.0-4.3) % Baso % (Auto) 0.4 (0.0-1.8) % Lymph # 0.8 L (1.2-5.4) K/mm3 Jackson # 0.6 (0.0-0.8) K/mm3 Eos # 0.0 (0.0-0.4) K/mm3 Baso # 0.0 (0.0-0.1) K/mm3 Seg Neutrophils % 84.9 H (40.0-70.0) % Seg Neutrophils # 8.0 H (1.8-7.7) K/mm3 PT 26.0 H (12.2-14.9) Sec. INR 2.44 H (0.87-1.13) POC ABG pH 7.275 L (7.35-7.45) POC ABG pCO2 44.2 (35-45) POC ABG pO2 76 L (80-105) POC ABG HCO3 20.5 (22-26 mml/L) POC ABG Total CO2 22 (23-27mmol/L) POC ABG O2 Sat 93 POC ABG Base Excess -6 ((-2) - (+3)mmol/L) FiO2 60 % Sodium (137-145) mmol/L Potassium (3.6-5.0) mmol/L Chloride (98-107) mmol/L Carbon Dioxide (22-30) mmol/L Anion Gap mmol/L BUN (7-17) mg/dL Creatinine (0.7-1.2) mg/dL Estimated GFR ml/min BUN/Creatinine Ratio % Glucose (65-100) mg/dL Calcium (8.4-10.2) mg/dL Total Creatine Kinase (30-135) units/L CK-MB (CK-2) (0.0-4.0) ng/mL CK-MB (CK-2) Rel Index (0-4) Troponin T (0.00-0.029) ng/mL NT-Pro-B Natriuret Pep (0-900) pg/mL Digoxin (0.9-2.0) ng/mL 12/19/18 12/19/18 Range/Units 06:00 06:00 WBC (4.5-11.0) K/mm3 RBC (3.65-5.03) M/mm3 Hgb (10.1-14.3) gm/dl Hct (30.3-42.9) % MCV (79-97) fl MCH (28-32) pg MCHC (30-34) % RDW (13.2-15.2) % Plt Count (140-440) K/mm3 Lymph % (Auto) (13.4-35.0) % Jackson % (Auto) (0.0-7.3) % Eos % (Auto) (0.0-4.3) % Baso % (Auto) (0.0-1.8) % Lymph # (1.2-5.4) K/mm3 Jackson # (0.0-0.8) K/mm3 Eos # (0.0-0.4) K/mm3 Baso # (0.0-0.1) K/mm3 Seg Neutrophils % (40.0-70.0) % Seg Neutrophils # (1.8-7.7) K/mm3 PT (12.2-14.9) Sec. INR (0.87-1.13) POC ABG pH (7.35-7.45) POC ABG pCO2 (35-45) POC ABG pO2 (80-105) POC ABG HCO3 (22-26 mml/L) POC ABG Total CO2 (23-27mmol/L) POC ABG O2 Sat POC ABG Base Excess ((-2) - (+3)mmol/L) FiO2 % Sodium 141 (137-145) mmol/L Potassium 4.2 (3.6-5.0) mmol/L Chloride 105.2 (98-107) mmol/L Carbon Dioxide 23 (22-30) mmol/L Anion Gap 17 mmol/L BUN 21 H (7-17) mg/dL Creatinine 1.2 (0.7-1.2) mg/dL Estimated GFR 52 ml/min BUN/Creatinine Ratio 18 % Glucose 101 H (65-100) mg/dL Calcium 8.6 (8.4-10.2) mg/dL Total Creatine Kinase 151 H (30-135) units/L CK-MB (CK-2) 5.5 H (0.0-4.0) ng/mL CK-MB (CK-2) Rel Index 3.6 (0-4) Troponin T 0.021 (0.00-0.029) ng/mL NT-Pro-B Natriuret Pep 6363 H (0-900) pg/mL Digoxin 0.5 L (0.9-2.0) ng/mL - EKG Data -: EKG Interpreted by Vt Rate: tachycardia - EKG Data 12/19/18 07:11 Tachycardiac, 109 beats per minutes, atrial fibrillation, left axis deviation, QTC prolonged, motion artifact, no endorsement of chest pain, this is an abnormal EKG, the EKG is not consistent with ST elevation myocardial infarction, appears to be grossly unchanged from prior EKG from June 2018 - Radiology Data Radiology results: report reviewed, image reviewed X-ray of the chest suggest multilobar pneumonia x-ray of the chest suggest multilobar pneumonia. - Medical Decision Making Differential diagnosis, including not limited to: Pneumonia, congestive heart failure, multifactorial respiratory failure Assessment and plan: 83-year-old female, currently on BiPAP therapy, tachycardic, tachypneic, hypothermic, clinical picture more suggestive of infectious etiology, rather than florid fluid overload. However, patient may have a component of congestive heart failure as well, given her lower extremity edema, and chronic medical history. She does meet sepsis criteria, however, given her physical exam, it is my opinion that she will not benefit from a 30 mL/kg bolus of IV fluids, but rather judicious aliquots of fluid, positive pressure ventilation, and close reassessment. She is clinically improved on BiPAP. She will be treated empirically for community-acquired pneumonia, and if additional information is gathered to suggest that she may have a hospital- acquired pneumonia, we will broaden her antibiotic coverage. She is on systemic anticoagulation, and has INR of greater than 2, therefore, think pulmonary embolism is unlikely. She will be started on active patient rewarming for her mild hypothermia. Hospital physician is paged to arrange admission. Critical Care Time: Yes Critical care time in (mins) excluding proc time.: 60 Critical care attestation.: If time is entered above; I have spent that time in minutes in the direct care of this critically ill patient, excluding procedure time. ED Disposition Clinical Impression: Shortness of breath, Chronic atrial fibrillation Pneumonia Qualifiers: Pneumonia type: due to other aerobic Gram-negative bacteria Laterality: bi lateral Lung location: unspecified part of lung Qualified Code(s): J15.6 - Pneumonia due to other Gram-negative bacteria Hypothermia Qualifiers: Encounter type: initial encounter Qualified Code(s): T68.XXXA - Hypothermia, initial encounter Disposition: 09 OP ADMIT IP TO THIS HOSP Is pt being admited?: Yes Condition: Fair
--- NOTE | 2018-12-19 06:16 | XRay Report ---
CHEST 1 VIEW INDICATION / CLINICAL INFORMATION: shortness of breath. COMPARISON: None available. FINDINGS: SUPPORT DEVICES: None. HEART / MEDIASTINUM: No significant abnormality. LUNGS / PLEURA: Diffuse interstitial disease with patchy opacities in both lungs. No pneumothorax. ADDITIONAL FINDINGS: No significant additional findings. IMPRESSION: 1. Extensive bilateral interstitial and airspace opacities. Signer Name: Rick Thompson MD Signed: 12/19/2018 6:12 AM Workstation Name: [id number]
[2018-12-19 06:23] LABS: Basophils % (Auto) 0.4 % (0.0-1.8); Eosinophils % (Auto) 0.1 % (0.0-4.3); Hematocrit 41.8 % (30.3-42.9); Hemoglobin 13.3 gm/dl (10.1-14.3); Lymphocytes # (Auto) 0.8 K/mm3 (1.2-5.4); Lymphocytes % (Auto) 8.7 % (13.4-35.0); Mean Corpuscular HGB Conc 32 % (30-34); Mean Corpuscular Volume 92 fl (79-97); Monocytes # (Auto) 0.6 K/mm3 (0.0-0.8); Monocytes % (Auto) 5.9 % (0.0-7.3); Platelet Count 221 K/mm3 (140-440); Red Blood Count 4.53 M/mm3 (3.65-5.03); Red Cell Distribution Width 15.8 % (13.2-15.2)
[2018-12-19] MEDS ORDERED: NACL 0.9% 500 ML 500 ML IV ONE (06:30)
[2018-12-19 06:33] LABS: INR 2.44 (0.87-1.13)
[2018-12-19 06:45] LABS: Creatine Kinase MB 5.5 ng/mL (0.0-4.0)
[2018-12-19 06:47] LABS: Calcium 8.6 mg/dL (8.4-10.2)
[2018-12-19] MEDS ORDERED: LASIX IV ONE (08:29)
[2018-12-19] MEDS ORDERED: D50W (25GM) Syringe IV PRN (08:34)
--- NOTE | 2018-12-19 08:36 | History and Physical Report ---
History of Present Illness Date of examination: 12/19/18 Chief complaint: SOB History of present illness: 83-year-old -[place] female with past medical history significant for CHF, A. fib, GERD, hypertension, dementia, meningioma was brought via EMS to the emergency department for the complaints of shortness of breath. Patient was desaturating and placed on BiPAP. I couldn't give any detailed history from the patient because she is on BiPAP. Patient was agitated. Chest x-ray showed bilateral interstitial and airspace opacities. ABG was done at presentation and 7.27 and patient was placed on BiPAP and repeat ABG 7.35. Patient oxygen saturation was corrected with BiPAP and suction. Pulmonary was consulted and admitted to MICU. While I was there patient was satting in the mid 80's and I was considering Intubation, but sat improved 100% with suction and correct placement of pulseox. Review of system couldn't be obtained because patient was agitated and on BiPAP. Past History Past Medical History: atrial fib, heart failure, hypertension Past Surgical History: Other (meningioma, stent) Social history: full code, other (couldn't obatined) Family history: other (couldn't obtained) Medications and Allergies Allergies Allergy/AdvReac Type Severity Reaction Status Date / Time No Known Allergies Allergy Verified 05/06/18 11:34 Home Medications Medication Instructions Recorded Confirmed Last Taken Type Furosemide [Lasix TAB] 40 mg PO QDAY 11/20/17 12/19/18 Unknown History Apixaban [Eliquis] 5 mg PO BID 05/06/18 12/19/18 Unknown History Digoxin [Digox] 125 mcg PO QDAY 05/06/18 12/19/18 Unknown History Lisinopril [Zestril TAB] 5 mg PO QDAY 05/06/18 12/19/18 Unknown History tiZANidine [Zanaflex 4mg TAB] 4 mg PO HS 05/06/18 12/19/18 Unknown History Esomeprazole Magnesium [NexIUM] 40 mg PO QDAY 30 Days #30 11/07/18 12/19/18 Unknown Rx capsule. Insulin Glargine [Lantus VIAL] 20 units SUB-Q QHS 12/19/18 12/19/18 Unknown History Metoprolol Xl [Metoprolol 50 mg PO QDAY 12/19/18 12/19/18 Unknown History SUCCINATE ER TAB] glipiZIDE [Glucotrol] 10 mg PO QDAY 12/19/18 12/19/18 Unknown History Active Meds: Active Medications Apixaban (Eliquis) 5 mg PO BID [facility]; Protocol Dextrose (D50w (25gm) Syringe) 50 ml IV PRN PRN PRN Reason: Hypoglycemia Furosemide (Lasix) 40 mg IV ONCE ONE Stop: 12/19/18 08:30 Ceftriaxone Sodium (Rocephin/Ns 1 Gm/50 Ml) 1 gm in 50 mls @ 100 mls/hr IV Q24HR [facility]; Protocol Azithromycin 500 mg/ Sodium (Chloride) 250 mls @ 250 mls/hr IV Q24HR [facility]; Protocol Dextrose/Sodium Chloride (D5/0.45ns) 1,000 mls @ 75 mls/hr IV DIRECT [facility] Insulin Human Lispro (Humalog) 0 unit SUB-Q ACHS [facility]; Protocol Exam - Physical Exam Narrative exam: Patient is in respiratory distress. The patient appeared well nourished and normally developed. Vital signs as documented. Head exam is unremarkable. No scleral icterus . Neck is without jugular venous distension, thyromegaly, or carotid bruits. Lungs decrease airentry. Cardiac exam reveals regular rate and Rhythm. Abdominal exam reveals normal bowel sounds. Extremities are nonedematous and both femoral and pedal pulses are normal. 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 - Constitutional Vitals: Temp Pulse Resp BP Pulse Ox 99.1 F 98 H 17 114/62 89 12/19/18 08:29 12/19/18 08:28 12/19/18 08:28 12/19/18 08:28 12/19/18 08:28 Results - Labs CBC & Chem 7: 12/19/18 06:00 12/19/18 06:00 Labs: Laboratory Last Values WBC 9.4 K/mm3 (4.5-11.0) 12/19/18 06:00 RBC 4.53 M/mm3 (3.65-5.03) 12/19/18 06:00 Hgb 13.3 gm/dl (10.1-14.3) 12/19/18 06:00 Hct 41.8 % (30.3-42.9) 12/19/18 06:00 MCV 92 fl (79-97) 12/19/18 06:00 MCH 29 pg (28-32) 12/19/18 06:00 MCHC 32 % (30-34) 12/19/18 06:00 RDW 15.8 % (13.2-15.2) H 12/19/18 06:00 Plt Count 221 K/mm3 (140-440) 12/19/18 06:00 Lymph % (Auto) 8.7 % (13.4-35.0) L 12/19/18 06:00 Jack % (Auto) 5.9 % (0.0-7.3) 12/19/18 06:00 Eos % (Auto) 0.1 % (0.0-4.3) 12/19/18 06:00 Baso % (Auto) 0.4 % (0.0-1.8) 12/19/18 06:00 Lymph # 0.8 K/mm3 (1.2-5.4) L 12/19/18 06:00 Jack # 0.6 K/mm3 (0.0-0.8) 12/19/18 06:00 Eos # 0.0 K/mm3 (0.0-0.4) 12/19/18 06:00 Baso # 0.0 K/mm3 (0.0-0.1) 12/19/18 06:00 Seg Neutrophils % 84.9 % (40.0-70.0) H 12/19/18 06:00 Seg Neutrophils # 8.0 K/mm3 (1.8-7.7) H 12/19/18 06:00 PT 26.0 Sec. (12.2-14.9) H 12/19/18 06:00 INR 2.44 (0.87-1.13) H 12/19/18 06:00 POC ABG pH 7.275 (7.35-7.45) L 12/19/18 05:59 POC ABG pCO2 44.2 (35-45) 12/19/18 05:59 POC ABG pO2 76 (80-105) L 12/19/18 05:59 POC ABG HCO3 20.5 (22-26 mml/L) 12/19/18 05:59 POC ABG Total CO2 22 (23-27mmol/L) 12/19/18 05:59 POC ABG O2 Sat 93 12/19/18 05:59 POC ABG Base Excess -6 ((-2) - (+3)mmol/L) 12/19/18 05:59 60 % 12/19/18 05:59 Sodium 141 mmol/L (137-145) 12/19/18 06:00 Potassium 4.2 mmol/L (3.6-5.0) 12/19/18 06:00 Chloride 105.2 mmol/L (98-107) 12/19/18 06:00 Carbon Dioxide 23 mmol/L (22-30) 12/19/18 06:00 17 mmol/L 12/19/18 06:00 BUN 21 mg/dL (7-17) H 12/19/18 06:00 1.2 mg/dL (0.7-1.2) 12/19/18 06:00 Estimated GFR 52 ml/min 12/19/18 06:00 18 % 12/19/18 06:00 Glucose 101 mg/dL (65-100) H 12/19/18 06:00 Lactic Acid 1.80 mmol/L (0.7-2.0) 12/19/18 07:33 Calcium 8.6 mg/dL (8.4-10.2) 12/19/18 06:00 Magnesium 2.00 mg/dL (1.7-2.3) 12/19/18 06:42 140 units/L (30-135) H 12/19/18 06:42 CK-MB (CK-2) 5.5 ng/mL (0.0-4.0) H 12/19/18 06:00 CK-MB (CK-2) Rel Index 3.6 (0-4) 12/19/18 06:00 0.021 ng/mL (0.00-0.029) 12/19/18 06:00 NT-Pro-B Natriuret Pep 6363 pg/mL (0-900) H 12/19/18 06:00 TSH 1.970 mlU/mL (0.270-4.200) 12/19/18 06:00 Digoxin 0.5 ng/mL (0.9-2.0) L 12/19/18 06:00 - Imaging and Cardiology Chest x-ray: report reviewed Assessment and Plan Assessment and plan: 83-year-old female with past medical history significant for CHF, A. fib, hypertension presented to the emergency department with complaints of SOB. Patient was on BiPAP and agitated, couldn't obtain detailed history. Acute hypoxic respiratory failure - Patient is on BiPAP, nebulizer treatment and oxygen support - Pulmonary consulted - Sats and ABG improved with BiPAP Sepsis 2/2 Bilateral pneumonia -Patient is on IV antibiotics -We'll follow culture results CHF - patient was given a dose of IV Lasix - Will monitor A. fib - We'll continue eliquis - Heart rate is in the upper 90's - Will put on beta blockers once respiratory problems is getting better and HR is uncontrolled Disposition - Admit to MICU Advance Directives: Yes VTE prophylaxis?: Chemical Plan of care discussed with patient/family: Yes
[2018-12-19] MEDS ORDERED: MORPHINE IV PRN (08:38)
[2018-12-19] MEDS: HALDOL IM PRN ×2 (08:50→22:28)
[2018-12-19] MEDS: D5/0.45NS 1,000 ML IV SCH ×2 (09:21→22:30)
[2018-12-19] MEDS: HumaLOG SUB-Q SCH ×3 (11:19→22:30)
[2018-12-19] MEDS: ELIQUIS PO SCH ×2 (11:19→22:29)
[2018-12-19] MEDS ORDERED: LASIX IV NR (12:00)
[2018-12-19] MEDS: DUONEB *Not for PRN Use IH SCH ×4 (12:20→23:39)
[2018-12-19 14:05] LABS: Bacteria,Urine 1+ /HPF (Negative); Bilirubin,Urine NEG (Negative); Blood,Urine SM (Negative); Color,Urine Straw (Yellow); Protein,Urine <15 mg/dL mg/dL (Negative); Urobilinogen,Urine < 2.0 mg/dL (<2.0)
--- NOTE | 2018-12-19 15:21 | Consultation ---
History of Present Illness Consult date: 12/19/18 Requesting physician: ALENA CARTAGENA Reason for consult: hypoxemia History of present illness: 83 y/o female with acute hypoxic respiratory failure and requiring continuous bipap. Patient's CXR shows bilateral alveolar infiltrates most likely consistent with pulmonary edema given elevated BNP. Was admitted with CHF exacerbation before but CXR did not look this bad. Was given lasix in the ED. Was weaned to NC and downgraded to the floor. Past History Past Medical History: atrial fib, heart failure, hypertension Past Surgical History: Other (meningioma, stent) Social history: full code, other (couldn't obatined) Family history: other (couldn't obtained) Medications and Allergies Allergies Allergy/AdvReac Type Severity Reaction Status Date / Time No Known Allergies Allergy Verified 05/06/18 11:34 Home Medications Medication Instructions Recorded Confirmed Last Taken Type Furosemide [Lasix TAB] 40 mg PO QDAY 11/20/17 12/19/18 Unknown History Apixaban [Eliquis] 5 mg PO BID 05/06/18 12/19/18 Unknown History Digoxin [Digox] 125 mcg PO QDAY 05/06/18 12/19/18 Unknown History Lisinopril [Zestril TAB] 5 mg PO QDAY 05/06/18 12/19/18 Unknown History tiZANidine [Zanaflex 4mg TAB] 4 mg PO HS 05/06/18 12/19/18 Unknown History Esomeprazole Magnesium [NexIUM] 40 mg PO QDAY 30 Days #30 11/07/18 12/19/18 Unknown Rx capsule. Insulin Glargine [Lantus VIAL] 20 units SUB-Q QHS 12/19/18 12/19/18 Unknown History Metoprolol Xl [Metoprolol 50 mg PO QDAY 12/19/18 12/19/18 Unknown History SUCCINATE ER TAB] glipiZIDE [Glucotrol] 10 mg PO QDAY 12/19/18 12/19/18 Unknown History Active Meds: Active Medications Albuterol/Ipratropium (Duoneb *Not For Prn Use*) 1 ampul IH Q4HRT [facility] Last Admin: 12/19/18 12:20 Dose: 1 ampul Documented by: Apixaban (Eliquis) 5 mg PO BID [facility]; Protocol Last Admin: 12/19/18 11:19 Dose: 5 mg Documented by: Dextrose (D50w (25gm) Syringe) 50 ml IV PRN PRN PRN Reason: Hypoglycemia Furosemide (Lasix) 40 mg IV 0600,1800 [facility] Haloperidol Lactate (Haldol) 5 mg IM Q4H PRN PRN Reason: Agitation Last Admin: 12/19/18 08:50 Dose: 5 mg Documented by: Ceftriaxone Sodium (Rocephin/Ns 1 Gm/50 Ml) 1 gm in 50 mls @ 100 mls/hr IV Q24HR [facility]; Protocol Azithromycin 500 mg/ Sodium (Chloride) 250 mls @ 250 mls/hr IV Q24HR [facility]; Protocol Dextrose/Sodium Chloride (D5/0.45ns) 1,000 mls @ 75 mls/hr IV DIRECT [facility] Last Admin: 12/19/18 09:21 Dose: 75 mls/hr Documented by: Insulin Human Lispro (Humalog) 0 unit SUB-Q ACHS [facility]; Protocol Last Admin: 12/19/18 11:19 Dose: Not Given Documented by: Morphine Sulfate (Morphine) 2 mg IV Q3H PRN PRN Reason: Pain, Moderate (4-6) Review of Systems All systems: negative Physical Examination Vital signs: Vital Signs Temp Pulse Resp BP Pulse Ox 95.3 F L 105 H 16 105/64 100 12/19/18 05:45 12/19/18 05:45 12/19/18 05:45 12/19/18 05:45 12/19/18 05:45 Results - Laboratory Findings CBC and BMP: 12/20/18 07:00 12/20/18 07:00 ABG POC ABG pH 7.354 (7.35-7.45) 12/19/18 08:44 POC ABG pCO2 33.1 (35-45) L 12/19/18 08:44 POC ABG pO2 154 (80-105) H 12/19/18 08:44 POC ABG HCO3 18.4 (22-26 mml/L) 12/19/18 08:44 POC ABG Total CO2 19 (23-27mmol/L) 12/19/18 08:44 POC ABG O2 Sat 99 12/19/18 08:44 PT/INR, D-dimer PT 26.0 Sec. (12.2-14.9) H 12/19/18 06:00 INR 2.44 (0.87-1.13) H 12/19/18 06:00 Abnormal lab findings: Abnormal Labs 12/19/18 12/19/18 12/19/18 05:59 06:00 06:00 RDW 15.8 H Lymph % (Auto) 8.7 L Lymph # 0.8 L Seg Neutrophils % 84.9 H Seg Neutrophils # 8.0 H PT 26.0 H INR 2.44 H POC ABG pH 7.275 L POC ABG pCO2 POC ABG pO2 76 L BUN Glucose POC Glucose Hemoglobin A1c Lactic Acid Total Creatine Kinase CK-MB (CK-2) NT-Pro-B Natriuret Pep Digoxin 12/19/18 12/19/18 12/19/18 06:00 06:00 06:00 RDW Lymph % (Auto) Lymph # Seg Neutrophils % Seg Neutrophils # PT INR POC ABG pH POC ABG pCO2 POC ABG pO2 BUN 21 H Glucose 101 H POC Glucose Hemoglobin A1c 8.6 H Lactic Acid Total Creatine Kinase 151 H CK-MB (CK-2) 5.5 H NT-Pro-B Natriuret Pep 6363 H Digoxin 0.5 L 12/19/18 12/19/18 12/19/18 06:42 06:42 08:44 RDW Lymph % (Auto) Lymph # Seg Neutrophils % Seg Neutrophils # PT INR POC ABG pH POC ABG pCO2 33.1 L POC ABG pO2 154 H BUN Glucose POC Glucose Hemoglobin A1c Lactic Acid 2.10 H* Total Creatine Kinase 140 H CK-MB (CK-2) NT-Pro-B Natriuret Pep Digoxin 12/19/18 11:23 RDW Lymph % (Auto) Lymph # Seg Neutrophils % Seg Neutrophils # PT INR POC ABG pH POC ABG pCO2 POC ABG pO2 BUN Glucose POC Glucose 143 H Hemoglobin A1c Lactic Acid Total Creatine Kinase CK-MB (CK-2) NT-Pro-B Natriuret Pep Digoxin - Diagnostic Findings Chest x-ray: image reviewed (bilateral alveolar infiltrates, extensive, most likely edema, could be infectious related or blood) Assessment and Plan 83 y/o female wtih acute hypoxic respiratory failure 1. LAsix again at 1800 and then BID 2. continue bipap therapy 3. BP control 4. Fluid restriction 5. Needs repeat echo
[2018-12-19] MEDS ORDERED: LASIX IV SCH (18:00)
[2018-12-19] MEDS ORDERED: PROVENTIL IH ONE (21:08)
[2018-12-20] MEDS ORDERED: LASIX IV ONE (01:01)
--- NOTE | 2018-12-20 01:42 | Event Note ---
Date: 12/20/18 NURSE CALLED TO REPORT WORSENING SHORTNESS OF BREATH AND ANXIETY ON PATIENT. NO CHEST PAIN REPORTED, NO FEVER OR COUGH AND NO CHANGE IN MENTAL STATUS. NURSE IN CHARGE DISCUSSED PATIENT'S CONDITION WITH THE PRODUCT DEVELOPMENT INTERN MANAGING THE CASE WHO ADVISED ON BIPAP SETTINGS .PATIENT IS ON BIPAP AND HAS HAD 2 DOSES OF 40MG LASIX SINCE MORNING OF YESTERDAY BUT ON I.V D5I/2 NORMAL SALINE AT 75ML/HR O/E PATIENT ON BIPAP AND IN MODERATE DISTRESS DUE TO SHORTNESS OF BREATH AND ANXIOUS. V.SIGN SHOWS . TEMP OF 97.5,P= 122,R =30,BP 119/63 CVS EXAM SHOWED HEART SOUNDS NORMAL AND LUNG EXAM SHOWS CRACKLES IN BOTH LUNGS CXR DONE EARLIER YESTERDAY SHOWED INTERSTITIAL INFILTRATE AND AIR SPACE DISEASE. ABG RESULT ; PH OF 7.27,PCO2 OF 29.1,P02 OF 79 WHILE ON BIPAP AT FI02 OF 30% PATIENT WAS ON I.V D5 I/2 NORMAL SALINE AT 75ML/HR. BLOOD GLUCOSE ABOUT 380 PLAN OF CARE: 1. TRANSFER TO [facility] 2. STOP I.V FLUID 3.I.V ADDITIONAL LASIX 20MG 4. CONTINUE BIPAP AND NEBULIZER 5. WILL CONTINUE TO MONITOR
[2018-12-20] MEDS ORDERED: ATIVAN IV ONE (02:22)
[2018-12-20] MEDS: DUONEB *Not for PRN Use IH SCH (03:07)
[2018-12-20 04:36] LABS: Mean Corpuscular HGB Conc 31 % (30-34); Mean Corpuscular Volume 97 fl (79-97); Platelet Count 200 K/mm3 (140-440); Red Blood Count 4.05 M/mm3 (3.65-5.03); Red Cell Distribution Width 16.8 % (13.2-15.2)
[2018-12-20 04:39] LABS: Hematocrit 39.3 % (30.3-42.9)
[2018-12-20 04:44] LABS: Calcium 8.5 mg/dL (8.4-10.2)
[2018-12-20] MEDS ORDERED: VASELINE LIP THERAPY TP PRN (06:10)
[2018-12-20] MEDS ORDERED: ARTIFICIAL TEARS OPHTH OINT OU PRN (06:10)
[2018-12-20 06:19] LABS: Band Neutrophils # (Manual) 1.4 K/mm3; Basophils % (Manual) 0 % (0.0-1.8); Eosinophils % (Manual) 0 % (0.0-4.3); Macrocytosis Few; Monocytes % (Manual) 0 % (0.0-7.3); Platelet Estimate Consistent w Auto; Total Cells Counted 100
--- NOTE | 2018-12-20 06:28 | XRay Report ---
CHEST 1 VIEW 12/20/2018 6:12 AM INDICATION / CLINICAL INFORMATION: MAIN: ETT placement ap supine image code . COMPARISON: One view of the chest from 12/19/2018. FINDINGS: SUPPORT DEVICES: An ET tube has been placed with the tip projecting over the origin of the right main bronchus. HEART / MEDIASTINUM: Mild cardiomegaly is noted. LUNGS / PLEURA: Diffuse bilateral pulmonary opacities have worsened. No significant pleural effusion. No pneumothorax. ADDITIONAL FINDINGS: No significant additional findings. IMPRESSION: 1. Interval placement of an ET tube with the tip located over the origin of the right main bronchus. Retraction of the tube by 3 cm is recommended. 2. Interval worsening of bilateral pulmonary opacities. Signer Name: Toro Barlow MD Signed: 12/20/2018 6:23 AM Workstation Name: [id number]
--- NOTE | 2018-12-20 06:36 | Event Note ---
Date: 12/20/18 Responded to CODE BLUE at request of medical team for respiratory failure and intubation. KARRIE Cardona at the bedside. Patient is receiving active bag valve mask ventilation by respiratory therapy. Respiratory therapy attempted intubation at least once prior to my arrival, unsuccessfully. Patient placed on nasal cannula, 50 mg/m. She is bag valve mask ventilation at 100% FiO2. Towel rolls placed underneath the patient's shoulder, to align the ear to the sternal notch. Direct laryngoscopy is performed with a Emilia 4 blade, without need for paralysis or induction. There is excellent view of the cords, and this provider inserts a 7.5 endotracheal tube, with one attempt, with no difficulty. Patient has appropriate postintubation breath sounds, and appropriate In graphic changes. Blood pressure 155 over 70s. Post intubation management will be deferred to the inpatient team, including following up and interpreting postintubation x-ray the chest. KARRIE Cardona at the bedside Prognosis is poor
[2018-12-20] MEDS ORDERED: LEVOPHED DRIP 4 MG/NS 250 ML 4 MG/250 ML BAG IV SCH (07:00)
--- NOTE | 2018-12-20 07:25 | Death Note ---
Note Date of : 12/20/18 Time of : 07:16 Time Pronounced: 07:17 - Preliminary Cause of (problem) (1) Respiratory failure Preliminary cause of
[2018-12-20 07:26] LABS: Hematocrit 35.9 % (30.3-42.9); Hemoglobin 11.2 gm/dl (10.1-14.3); Mean Corpuscular HGB Conc 31 % (30-34); Mean Corpuscular Volume 93 fl (79-97); Platelet Count 187 K/mm3 (140-440); Red Blood Count 3.85 M/mm3 (3.65-5.03); Red Cell Distribution Width 16.2 % (13.2-15.2)
--- NOTE | 2018-12-20 07:26 | Death Summary ---
Summary - Providers Date of service: 12/20/18 Consults: 12/19/18 08:30 Consult to Physician [CONS] Routine Comment: DR MATEO ARZATE W/DR CORONA @1055 Consulting Provider: ANN CORONA Physician Instructions: Reason For Exam: acute hypoxic respiratory failure 12/20/18 06:10 Consult to Dietitian/Nutrition [CONS] Routine Physician Instructions: Reason For Exam: Reason for Consult: Evaluate nutritional intake Attending: ALENA CARTAGENA MD - summary Date of admission: 12/19/18 07:17 Date of : 12/20/18 Reason for admission: acute hypoxic respiratory failure, bilateral pneumonia, pulmonary edema Significant findings: Brief H/P 83-year-old -[place] female with past medical history significant for CHF, A. fib, GERD, hypertension, dementia, meningioma was brought via EMS to the emergency department for the complaints of shortness of breath. Patient was desaturating and placed on BiPAP. I couldn't give any detailed history from the patient because she is on BiPAP. Patient was agitated. Chest x-ray showed bilateral interstitial and airspace opacities. ABG was done at presentation and 7.27 and patient was placed on BiPAP and repeat ABG 7.35. Patient oxygen saturation was corrected with BiPAP and suction. Pulmonary was consulted and admitted to MICU. While I was there patient was satting in the mid 80's and I was considering Intubation, but sat improved 100% with suction and correct placement of pulseox. Patient was admitted to medical floor was continued with BiPAP, and in the floor patient was saturaing well and was off BIPAP. Overnight and has shortness of breath and was placed back on BiPAP. Earlier this morning the on-call for SOB and hypoxia patient was intubated and started to ICU. ABG was 7.2 and O2 sat was 94%. Later patient went into PEA and was coded according to ACLS protocol and excess fluid resuscitated. After 30 minutes patient was coded again for PEA and was assisted to according ACLS protocol, but during this time patient had v.fib/Vtach and was shocked. The daughter was in the room and discussed the disease process, the treatment and management plan. Despite our optimal treatment the patient at 07:16. Procedures/treatments rendered: Patient was treated with IV antibiotics, BiPAP and later intubated. Patient was on pressers after the first code. Coded according to ACLS protocol. Pertinent studies: CXR, ABG - Final diagnosis (1) Respiratory failure Qualifiers: Chronicity: acute Respiratory failure complication: hypoxia Qualified Code(s): J96.01 - Acute respiratory failure with hypoxia Note: Final diagnosis: (2) PEA (Pulseless electrical activity) Note: Final diagnosis: (3) Chronic atrial fibrillation Note: Final diagnosis: (4) Hypothermia Qualifiers: Encounter type: initial encounter Qualified Code(s): T68.XXXA - Hypothermia, initial encounter Note: Final diagnosis: (5) Pneumonia Qualifiers: Pneumonia type: due to other aerobic Gram-negative bacteria Laterality: bilateral Lung location: unspecified part of lung Qualified Code(s): J15.6 - Pneumonia due to other Gram-negative bacteria Note: Final diagnosis: (6) Shortness of breath Note: Final diagnosis: (7) Acute encephalopathy Note: Final diagnosis: (8) Anticoagulated by anticoagulation treatment Note: Final diagnosis: (9) Atrial flutter Qualifiers: Atrial flutter type: unspecified Qualified Code(s): I48.92 - Unspecified atrial flutter Note: Final diagnosis: (10) CHF exacerbation Qualifiers: Qualified Code(s): I50.43 - Acute on chronic combined systolic (congestive) and diastolic (congestive) heart failure Note: Final diagnosis: (11) Meningioma Note: Final diagnosis: (12) GERD (gastroesophageal reflux disease) Qualifiers: Esophagitis presence: without esophagitis Qualified Code(s): K21.9 - Gastro-esophageal reflux disease without esophagitis Note: Final diagnosis: (13) HLD (hyperlipidemia) Qualifiers: Hyperlipidemia type: mixed hyperlipidemia Qualified Code(s): E78.2 - Mixed hyperlipidemia Note: Final diagnosis: (14) HTN (hypertension) Qualifiers: Hypertension type: essential hypertension Qualified Code(s): I10 - Essential (primary) hypertension Note: Final diagnosis: (15) Hypertension Qualifiers: Hypertension type: essential hypertension Qualified Code(s): I10 - Essential (primary) hypertension Note: Final diagnosis: (16) T2DM (type 2 diabetes mellitus) Qualifiers: Diabetes mellitus tank terminal gauger insulin use: without tank terminal gauger use Note: Final diagnosis: (17) Sepsis Qualifiers: Sepsis type: sepsis due to unspecified organism Qualified Code(s): A41.9 - Sepsis, unspecified organism Note: Final diagnosis:
[2018-12-20 07:51] LABS: Creatine Kinase MB 5.5 ng/mL (0.0-4.0)
[2018-12-20 07:52] LABS: Albumin 2.7 g/dL (3.9-5)
[2018-12-20 08:03] VITALS: BP 105/83
--- NOTE | 2018-12-20 08:08 | Event Note ---
Date: 12/20/18 CODE STEFF WAS CALLED ON PATIENT AT ABOUT 5.56 AM BECAUSE OF BRADYCARDIA AND ANOTHER CODE AT 6.23A.M ON ARRIVAL PATIENT WAS INTUBATED BY THE ED DOCTOR DR. ALEJO AND CPR IN PROGRESS. TOTAL OF 3 EPINEPHRINE DOSES WERE GIVEN AND 1 AMP OF BICARB GIVEN. PATIENT WAS RESUCCITATED WITH PULSE REGAINED AND WENT FROM SVT TO SINUS TACH TO JUNTIONAL RYTHM. RIGHT INTROSSEOUS ROUT PUT IN BY ED DOCTOR (EVELINA ) FOR I.V LEVOPHEDWHICH WAS ORDERED TO MAINTAIN BP AND PULSE. PATIENT
[2018-12-20 08:09] LABS: Calcium 8.5 mg/dL (8.4-10.2)
[2018-12-20 08:17] LABS: Chol/HDL Ratio 1.48 %
[2018-12-20] MEDS ORDERED: ZITHROMAX 500 MG in NACL 0.9% 250ML 250 ML IV SCH (10:00)
[2018-12-20] MEDS ORDERED: ROCEPHIN/NS 1 GM/50 ML 1 GM/50 ML BAG IV SCH (10:00)
[2018-12-20 11:03] LABS: Basophils # (Auto) 0.1 K/mm3 (0.0-0.1); Basophils % (Auto) 0.4 % (0.0-1.8); Lymphocytes # (Auto) 1.9 K/mm3 (1.2-5.4); Lymphocytes % (Auto) 12.6 % (13.4-35.0); Monocytes # (Auto) 0.9 K/mm3 (0.0-0.8); Monocytes % (Auto) 6.3 % (0.0-7.3)
[2018-12-20 11:10] LABS: Basophils % (Manual) 0 % (0.0-1.8); Eosinophils % (Manual) 0 % (0.0-4.3); Total Cells Counted 100
[2018-12-20 11:15] LABS: Burr Cells Few; Platelet Estimate Consistent w Auto; Target Cells Few
[2018-12-22] MEDS ORDERED: XYLOCAINE 2% INFILTRATI ONE (13:45)
== END 2018-12-20 11:10 | DRG 871 ==
LOC: ED 05:12 → IMCU 07:17 → 4A 14:32 → IMCU 12-20 01:13 → CC1 12-20 10:31
PROVIDERS: ADMIT Internal Medicine; ATTEND Internal Medicine
PROC: 5A09357 Assistance with Respiratory Ventilation, Less than 24 Consecutive Hours, Continuous Positive Airway Pressure (ICD-10-PCS; 2018-12-19)
PROC: 4A033R1 Measurement of Arterial Saturation, Peripheral, Percutaneous Approach (ICD-10-PCS; 2018-12-19)
PROC: 3E0A3GC Introduction of Other Therapeutic Substance into Bone Marrow, Percutaneous Approach (ICD-10-PCS; principal; 2018-12-20)
PROC: 5A09357 Assistance with Respiratory Ventilation, Less than 24 Consecutive Hours, Continuous Positive Airway Pressure (ICD-10-PCS; 2018-12-20)
PROC: 5A1935Z Respiratory Ventilation, Less than 24 Consecutive Hours (ICD-10-PCS; 2018-12-20)
PROC: 0BH17EZ Insertion of Endotracheal Airway into Trachea, Via Natural or Artificial Opening (ICD-10-PCS; 2018-12-20)
DX: A41.59 Other Gram-negative sepsis (principal); J15.6 Pneumonia due to other Gram-negative bacteria; J96.01 Acute respiratory failure with hypoxia; I47.1 Supraventricular tachycardia; K21.9 Gastro-esophageal reflux disease without esophagitis; I50.9 Heart failure, unspecified; I11.0 Hypertensive heart disease with heart failure; F03.90 Unspecified dementia, unspecified severity, without behavioral disturbance, psychotic disturbance, mood disturbance, and anxiety; I48.2 Chronic atrial fibrillation; E11.9 Type 2 diabetes mellitus without complications; D32.9 Benign neoplasm of meninges, unspecified; Z79.01 Long term (current) use of anticoagulants; Z79.899 Other long term (current) drug therapy; Z79.4 Long term (current) use of insulin; Z86.73 Personal history of transient ischemic attack (TIA), and cerebral infarction without residual deficits
CPT/HCPCS: 36415; 71045; 80048; 80053; 80061; 80162; 81001; 82140; 82550; 82553; 82803; 82962; 83036; 83735; 83880; 84443; 84484; 85007; 85025; 85610; 87040; 93005; 93010; 94002; 94640; 94660; 94760; 96365; 96368; 96375; G0378; J0171; J0330; J0456; J0696; J1630; J1815; J1940; J2060; J7040; J7050